=== PATIENT | female | born 1950 | race Caucasian/White ===

== ENCOUNTER → 2016-09-05 | Outpatient (CLI) | payer BC ==
--- NOTE | 2016-09-05 13:10 | XR ---
EXAMINATION TYPE: XR chest 2V DATE OF EXAM: 09/05/2016 11:40 AM COMPARISON: NONE HISTORY: Preop TECHNIQUE: Frontal and lateral views of the chest are obtained. FINDINGS: There is no focal air space opacity, pleural effusion, or pneumothorax seen. The cardiac silhouette size is within normal limits. Biapical pleural thickening is noted. There is a mild spin al curvature. Questionable mild superior endplate depression at the midthoracic spine level may repre sent endplate compression fracture of indeterminate age. IMPRESSION: No acute cardiopulmonary process. Additional findings above.
== END | disposition home or self-care (01) ==
LOC: RADXRMAIN 11:20
PROVIDERS: ATTEND Neurological Surgery
DX: Z01.818 Encounter for other preprocedural examination (principal); D32.9 Benign neoplasm of meninges, unspecified
CPT/HCPCS: 71020; 93005

== ENCOUNTER 2016-10-10 09:36 | Emergency (ER) | payer BC, MEDICARE ==
[2016-10-10 09:47] VITALS: RESP 16
[2016-10-10] MEDS ORDERED: ACETAMINOPHEN IV (For NPO) 1,000 MG in EMPTY BAG 1 BAG IVPB STA (09:47)
[2016-10-10] MEDS ORDERED: SODIUM CHLORIDE 0.9% 1,000 ML IV ONE (09:47)
[2016-10-10] MEDS ORDERED: IBUPROFEN IV 600 MG in SODIUM CHLORIDE 0.9% 250 ML IV STA (09:48)
--- NOTE | 2016-10-10 09:55 | ED ---
General Adult HPI - General Chief complaint: Altered Mental Status Stated complaint: Altered Mental Status Time Seen by Provider: 10/10/16 09:40 Source: EMS, RN notes reviewed Mode of arrival: EMS Limitations: no limitations - History of Present Illness Initial comments: This is a 66-year-old female who presents to the emergency department complaining of altered mental status. family called EMS because she recently had brain surgery for meningioma and today they woke up and the patient was altered. According to family patient has been getting more fatigued since Friday and moving a lot slower but today she was significantly slower and accordingly then she seemed altered. patient is unable to give any history. She is awake and knows where she is but she does not answer questions as to why she is here. Per EMS she just was altered and more lethargic than normal so they wanted her to be evaluated. They saw no nausea or vomiting with the patient has been no difficulty breathing and the patient has not complained of pain anywhere. - Related Data Home Medications Medication Instructions Recorded Confirmed Aspirin 325 mg PO DAILY 01/11/15 10/10/16 Cholecalciferol [Vitamin D3] 2,000 unit PO DAILY 01/11/15 10/10/16 Imipramine HCl [Imipramine HCl] 10 mg PO BID 01/11/15 10/10/16 Loratadine [Claritin] 10 mg PO DAILY 01/11/15 10/10/16 Pramipexole [Mirapex] 0.375 mg PO HS 01/11/15 10/10/16 Terazosin [Hytrin] 1 mg PO DAILY 01/11/15 10/10/16 Ferrous Sulfate [Feosol] 325 mg PO HS 10/10/16 10/10/16 Multivits-Min/Iron/FA/Lutein 1 tab PO DAILY 10/10/16 10/10/16 [Centrum Silver Women Tablet] Pramipexole Di-HCl [Mirapex] 0.25 mg PO HS PRN 10/10/16 10/10/16 Allergies Allergy/AdvReac Type Severity Reaction Status Date / Time No Known Allergies Allergy Verified 10/10/16 10:32 Review of Systems ROS Statement: Those systems with pertinent positive or pertinent negative responses have been documented in the HPI. ROS Other: All systems not noted in ROS Statement are negative. Past Medical History Past Medical History: Blood Disorder, Hypertension Additional Past Medical History / Comment(s): BLADDER INCONTINENCE. MULTIPLE SCLEROSIS (GOOD MOTOR SKILLS). RESTLESS LEGS. ESSENTIAL THROMBOCYTHEMIA. 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 History of Any Multi-Drug Resistant Organisms: None Reported Past Surgical History: Section, Hysterectomy Additional Past Surgical History / Comment(s): LAPAROTOMY Past Anesthesia/Blood Transfusion Reactions: Motion Sickness Past Psychological History: No Psychological Hx Reported Smoking Status: Former smoker Past Alcohol Use History: Occasional Past Drug Use History: None Reported General Exam - General Exam Comments Initial Comments: GENERAL: Patient is well-developed and well-nourished. Patient is nontoxic and well- hydrated and is in mild distress. ENT: Neck is soft and supple. No significant lymphadenopathy is noted. Oropharynx is clear. Moist mucous membranes. Neck has full range of motion without eliciting any pain. EYES: The sclera were anicteric and conjunctiva were pink and moist. Extraocular movements were intact and pupils were equal round and reactive to light. Eyelids were unremarkable. PULMONARY: Unlabored respirations. Good breath sounds bilaterally. No audible rales rhonchi or wheezing was noted. CARDIOVASCULAR: There is a regular rate and rhythm without any murmurs gallops or rubs. ABDOMEN: Soft and nontender with normal bowel sounds. No palpable organomegaly was noted. There is no palpable pulsatile mass. SKIN: Skin is clear with no lesions or rashes and otherwise unremarkable. NEUROLOGIC: Patient is alert and oriented 1. Cranial nerves II through XII are grossly intact. Motor. Speech is definitely low volume. MUSCULOSKELETAL: Normal extremities with adequate strength and full range of motion. No lower extremity swelling or edema. No calf tenderness. LYMPHATICS: No significant lymphadenopathy is noted PSYCHIATRIC: Unable to assess at this time Limitations: no limitations Course Vital Signs 10/10/16 10/10/16 10/10/16 09:37 10:31 10:56 Temperature 100.3 F H 99.9 F H Pulse Rate 104 H 92 92 Respiratory 16 16 16 Rate Blood Pressure 123/72 120/69 125/71 O2 Sat by Pulse 98 100 Oximetry 10/10/16 11:51 Temperature 99.0 F Pulse Rate 87 Respiratory 16 Rate Blood Pressure 124/68 O2 Sat by Pulse 100 Oximetry Medical Decision Making - Medical Decision Making EKG shows normal sinus rhythm at 96 bpm ID interval is 140 QRS is 82 QT interval 358 QTC is 452. Patient's EKG shows no ST segment elevation or depression to the medics are noted. Chest x-ray showed no acute abnormality. Computed tomography scan of the brain showed a acute on chronic right subdural hematoma with an associated 7.7 mm subfalcine shift towards the left there is also an area of crescentic fluid adjacent to the left frontal lobe typical of epidural fluid collection. I spoke with [facility] for transfer and they accepted the transfer of this patient to had previous intracranial surgery at their facility. - Lab Data Result diagrams: 10/10/16 10:05 10/10/16 10:00 Lab Results 10/10/16 10/10/16 10/10/16 Range/Units 09:45 10:00 10:05 WBC (3.8-10.6) k/uL RBC (3.80-5.40) m/uL Hgb (11.4-16.0) gm/dL Hct (34.0-46.0) % MCV (80.0-100.0) fL MCH (25.0-35.0) pg MCHC (31.0-37.0) g/dL RDW (11.5-15.5) % Plt Count (150-450) k/uL Neutrophils % (Manual) % Band Neutrophils % % Lymphocytes % (Manual) % Monocytes % (Manual) % Metamyelocytes % % Myelocytes % % Blast Cells % Neutrophils # (Manual) (1.3-7.7) k/uL Lymphocytes # (Manual) (1.0-4.8) k/uL Monocytes # (Manual) (0-1.0) k/uL Nucleated RBCs (0-0) /100 WBC Manual Slide Review Polychromasia Poikilocytosis Anisocytosis Tear Drop Cells Ovalocytes PT (9.0-12.0) sec INR (<1.1) APTT (22.0-30.0) sec Sodium 143 (137-145) mmol/L Potassium 4.7 (3.5-5.1) mmol/L Chloride 104 (98-107) mmol/L Carbon Dioxide 26 (22-30) mmol/L Anion Gap 13 mmol/L BUN 16 (7-17) mg/dL Creatinine 0.45 L (0.52-1.04) mg/dL Est GFR (MDRD) Af Amer >60 (>60 ml/min/1.73 sqM) Est GFR (MDRD) Non-Af >60 (>60 ml/min/1.73 sqM) Glucose 108 H (74-99) mg/dL POC Glucose (mg/dL) 106 H (75-99) mg/dL POC Glu Poker In ID Margret Wood Plasma Lactic Acid Davide (0.7-2.0) mmol/L Calcium 8.9 (8.4-10.2) mg/dL Total Bilirubin 1.1 (0.2-1.3) mg/dL AST 29 (14-36) U/L ALT 28 (9-52) U/L Alkaline Phosphatase 59 (38-126) U/L Total Creatine Kinase 28 L (30-135) U/L CK-MB (CK-2) <0.2 (0.0-2.4) ng/mL CK-MB (CK-2) Rel Index Troponin I <0.012 (0.000-0.034) ng/mL Total Protein 7.1 (6.3-8.2) g/dL Albumin 4.3 (3.5-5.0) g/dL Urine Color Urine Appearance (Clear) Urine pH (5.0-8.0) Ur Specific [place] (1.001-1.035) Urine Protein (Negative) Urine Glucose (UA) (Negative) Urine Ketones (Negative) Urine Blood (Negative) Urine Nitrate (Negative) Urine Bilirubin (Negative) Urine Urobilinogen (<2.0) mg/dL Ur Leukocyte Esterase (Negative) Urine Opiates Screen (NotDetected) Ur Oxycodone Screen (NotDetected) Urine Methadone Screen (NotDetected) Ur Propoxyphene Screen (NotDetected) Ur Barbiturates Screen (NotDetected) U Tricyclic Antidepress (NotDetected) Ur Phencyclidine Scrn (NotDetected) Ur Amphetamines Screen (NotDetected) U Methamphetamines Scrn (NotDetected) U Benzodiazepines Scrn (NotDetected) Urine Cocaine Screen (NotDetected) U Marijuana (THC) Screen (NotDetected) 10/10/16 10/10/16 10/10/16 Range/Units 10:05 10:05 10:05 WBC 7.4 (3.8-10.6) k/uL RBC 3.00 L (3.80-5.40) m/uL Hgb 8.8 L (11.4-16.0) gm/dL Hct 27.0 L (34.0-46.0) % MCV 90.3 (80.0-100.0) fL MCH 29.3 (25.0-35.0) pg MCHC 32.5 (31.0-37.0) g/dL RDW 18.5 H (11.5-15.5) % Plt Count 110 L (150-450) k/uL Neutrophils % (Manual) 59.0 % Band Neutrophils % 5.0 % Lymphocytes % (Manual) 20.0 % Monocytes % (Manual) 7.0 % Metamyelocytes % 3.5 % Myelocytes % 3.0 % Blast Cells % 2.5 Neutrophils # (Manual) 4.7 (1.3-7.7) k/uL Lymphocytes # (Manual) 1.5 (1.0-4.8) k/uL Monocytes # (Manual) 0.5 (0-1.0) k/uL Nucleated RBCs 0 (0-0) /100 WBC Manual Slide Review Performed Polychromasia Present Poikilocytosis Slight Anisocytosis Slight Tear Drop Cells Present Ovalocytes Present PT 11.0 (9.0-12.0) sec INR 1.1 (<1.1) APTT 25.2 (22.0-30.0) sec Sodium (137-145) mmol/L Potassium (3.5-5.1) mmol/L Chloride (98-107) mmol/L Carbon Dioxide (22-30) mmol/L Anion Gap mmol/L BUN (7-17) mg/dL Creatinine (0.52-1.04) mg/dL Est GFR (MDRD) Af Amer (>60 ml/min/1.73 sqM) Est GFR (MDRD) Non-Af (>60 ml/min/1.73 sqM) Glucose (74-99) mg/dL POC Glucose (mg/dL) (75-99) mg/dL POC Glu Poker In ID Plasma Lactic Acid Davide (0.7-2.0) mmol/L Calcium (8.4-10.2) mg/dL Total Bilirubin (0.2-1.3) mg/dL AST (14-36) U/L ALT (9-52) U/L Alkaline Phosphatase (38-126) U/L Total Creatine Kinase (30-135) U/L CK-MB (CK-2) (0.0-2.4) ng/mL CK-MB (CK-2) Rel Index Troponin I (0.000-0.034) ng/mL Total Protein (6.3-8.2) g/dL Albumin (3.5-5.0) g/dL Urine Color Yellow Urine Appearance Clear (Clear) Urine pH 6.5 (5.0-8.0) Ur Specific [place] 1.021 (1.001-1.035) Urine Protein Trace H (Negative) Urine Glucose (UA) Negative (Negative) Urine Ketones 1+ H (Negative) Urine Blood Negative (Negative) Urine Nitrate Negative (Negative) Urine Bilirubin Negative (Negative) Urine Urobilinogen 3.0 (<2.0) mg/dL Ur Leukocyte Esterase Negative (Negative) Urine Opiates Screen Not Detected (NotDetected) Ur Oxycodone Screen Not Detected (NotDetected) Urine Methadone Screen Not Detected (NotDetected) Ur Propoxyphene Screen Not Detected (NotDetected) Ur Barbiturates Screen Not Detected (NotDetected) U Tricyclic Antidepress Not Detected (NotDetected) Ur Phencyclidine Scrn Not Detected (NotDetected) Ur Amphetamines Screen Not Detected (NotDetected) U Methamphetamines Scrn Not Detected (NotDetected) U Benzodiazepines Scrn Not Detected (NotDetected) Urine Cocaine Screen Not Detected (NotDetected) U Marijuana (THC) Screen Not Detected (NotDetected) 10/10/16 Range/Units 10:05 WBC (3.8-10.6) k/uL RBC (3.80-5.40) m/uL Hgb (11.4-16.0) gm/dL Hct (34.0-46.0) % MCV (80.0-100.0) fL MCH (25.0-35.0) pg MCHC (31.0-37.0) g/dL RDW (11.5-15.5) % Plt Count (150-450) k/uL Neutrophils % (Manual) % Band Neutrophils % % Lymphocytes % (Manual) % Monocytes % (Manual) % Metamyelocytes % % Myelocytes % % Blast Cells % Neutrophils # (Manual) (1.3-7.7) k/uL Lymphocytes # (Manual) (1.0-4.8) k/uL Monocytes # (Manual) (0-1.0) k/uL Nucleated RBCs (0-0) /100 WBC Manual Slide Review Polychromasia Poikilocytosis Anisocytosis Tear Drop Cells Ovalocytes PT (9.0-12.0) sec INR (<1.1) APTT (22.0-30.0) sec Sodium (137-145) mmol/L Potassium (3.5-5.1) mmol/L Chloride (98-107) mmol/L Carbon Dioxide (22-30) mmol/L Anion Gap mmol/L BUN (7-17) mg/dL Creatinine (0.52-1.04) mg/dL Est GFR (MDRD) Af Amer (>60 ml/min/1.73 sqM) Est GFR (MDRD) Non-Af (>60 ml/min/1.73 sqM) Glucose (74-99) mg/dL POC Glucose (mg/dL) (75-99) mg/dL POC Glu Poker In ID Plasma Lactic Acid Davide 1.4 (0.7-2.0) mmol/L Calcium (8.4-10.2) mg/dL Total Bilirubin (0.2-1.3) mg/dL AST (14-36) U/L ALT (9-52) U/L Alkaline Phosphatase (38-126) U/L Total Creatine Kinase (30-135) U/L CK-MB (CK-2) (0.0-2.4) ng/mL CK-MB (CK-2) Rel Index Troponin I (0.000-0.034) ng/mL Total Protein (6.3-8.2) g/dL Albumin (3.5-5.0) g/dL Urine Color Urine Appearance (Clear) Urine pH (5.0-8.0) Ur Specific [place] (1.001-1.035) Urine Protein (Negative) Urine Glucose (UA) (Negative) Urine Ketones (Negative) Urine Blood (Negative) Urine Nitrate (Negative) Urine Bilirubin (Negative) Urine Urobilinogen (<2.0) mg/dL Ur Leukocyte Esterase (Negative) Urine Opiates Screen (NotDetected) Ur Oxycodone Screen (NotDetected) Urine Methadone Screen (NotDetected) Ur Propoxyphene Screen (NotDetected) Ur Barbiturates Screen (NotDetected) U Tricyclic Antidepress (NotDetected) Ur Phencyclidine Scrn (NotDetected) Ur Amphetamines Screen (NotDetected) U Methamphetamines Scrn (NotDetected) U Benzodiazepines Scrn (NotDetected) Urine Cocaine Screen (NotDetected) U Marijuana (THC) Screen (NotDetected) Critical Care Time Critical Care Time: Yes Total Critical Care Time: 35 Disposition Clinical Impression: Subdural hematoma Disposition: OTHER INSTITUTION NOT DEFINED Time of Disposition: 12:20 - Out of Hospital Transfer - Req. Specs Out of Hospital Transfer - Requested Specifics: Other Emergency Center ( [facility])
[2016-10-10 10:08] LABS: Glucose,Whole Blood 106 mg/dL (75-99)
[2016-10-10 10:36] LABS: Appearance,Urine Clear (Clear); Bilirubin,Urine Negative (Negative); Glucose,Urine (UA) Negative (Negative); Ketones,Urine 1+ (Negative); Leukocyte Esterase,Urine Negative (Negative); Nitrite,Urine Negative (Negative); PH, Urine 6.5 (5.0-8.0); Protein,Urine Trace (Negative); Specific Gravity,Urine 1.021 (1.001-1.035); UA Billing (MACRO vs. MICRO) CHEM
[2016-10-10 10:38] LABS: ALT 28 U/L (9-52); AST 29 U/L (14-36); Alkaline Phosphatase 59 U/L (38-126); Anion Gap 13 mmol/L; Blood Urea Nitrogen 16 mg/dL (7-17); Calcium 8.9 mg/dL (8.4-10.2); Carbon Dioxide 26 mmol/L (22-30); Chloride 104 mmol/L (98-107); Glucose 108 mg/dL (74-99); Non-African American GFR(MDRD) >60 (>60 ml/min/1.73 sqM); Sodium 143 mmol/L (137-145); Total Bilirubin 1.1 mg/dL (0.2-1.3); Total Protein 7.1 g/dL (6.3-8.2)
[2016-10-10 10:44] LABS: Potassium 4.7 mmol/L (3.5-5.1)
[2016-10-10 10:45] LABS: INR 1.1 (<1.1); Partial Thromboplastin Time 25.2 sec (22.0-30.0)
[2016-10-10 10:55] LABS: Anisocytosis Slight; Aty Lym Flag Slight; CH 29.9; CHCM 33.4; HDW 3.65; HGB 8.8 gm/dL (11.4-16.0); Immature Gran Flag Moderate; MCH 29.3 pg (25.0-35.0); MCHC 32.5 g/dL (31.0-37.0); MCV 90.3 fL (80.0-100.0); Mean Platelet Volume 11.2; Poikilocytosis Slight; RDW 18.5 % (11.5-15.5); WBC 7.4 k/uL (3.8-10.6); WBC (Perox) 7.15
[2016-10-10 11:02] LABS: Add Differential Manual Differential
[2016-10-10 11:04] LABS: Creatine Kinase 28 U/L (30-135)
[2016-10-10 11:17] LABS: Creatine Kinase MB <0.2 ng/mL (0.0-2.4); Troponin I <0.012 ng/mL (0.000-0.034)
[2016-10-10 11:35] LABS: Blast Cells 2.5; Manual Review Performed; Metamyelocytes % 3.5 %; Nucleated Red Blood Cells 0 /100 WBC (0-0); Total Cells Counted 200
[2016-10-10 11:36] LABS: Polychromasia Present; Tear Drop Cells Present
--- NOTE | 2016-10-10 11:39 | XR ---
EXAMINATION TYPE: XR chest 2V DATE OF EXAM: 10/10/2016 11:31 AM COMPARISON: 09/05/2016 TECHNIQUE: PA and lateral views submitted. HISTORY: Patient found unresponsive FINDINGS: The lungs are clear and there is no pneumothorax, pleural effusion, or focal pneumonia. Right apica l pleural-based thickening seen. No overt failure. IMPRESSION: 1. No acute process.
--- NOTE | 2016-10-10 11:43 | CT ---
EXAMINATION TYPE: CT brain wo con DATE OF EXAM: 10/10/2016 11:31 AM COMPARISON: NONE HISTORY: Altered mental changes CT DLP: 1012.7 mGycm Automated exposure control for dose reduction was used. FINDINGS: There has been a left frontal craniotomy. There are bilateral subdural fluid collections. These appear to be subdural hygromas. Maximal thickne ss on the right is 1.4 cm. Maximal thickness on the left is in the left frontal region. This measures 1.3 cm. The left collection is somewhat crescentic. This makes an epidural fluid collection more pro bable. There is some high attenuation within the right-sided collection suggesting this may be acute on chronic. There is associated mass effect with effacement of the right lateral ventricle. There is approximately 7.7 mm of subfalcine shift towards the left. There is diffuse periventricular white mat ter lucency which may be due to chronic ischemic change or transependymal absorption of CSF. Visualized portions of the paranasal sinuses and mastoids are clear. IMPRESSION: ACUTE ON CHRONIC RIGHT SUBDURAL HEMATOMA. THIS IS ASSOCIATED WITH 7.7 MM SUBFALCINE SHIFT TOWARDS THE LEFT. 2. CRESCENTIC FLUID COLLECTION ADJACENT TO THE LEFT FRONTAL LOBE. THE CONCENTRIC NATURE OF THIS MAKES THE PRESENCE OF AN EPIDURAL FLUID COLLECTION POSSIBLE. 3. POSTSURGICAL CHANGE.
[2016-10-10 11:46] LABS: Ovalocytes Present
[2016-10-10 11:52] VITALS: TEMP 99
[2016-10-10 12:23] VITALS: BP 122/66; PULSE 89
== END 2016-10-10 12:24 | disposition other institution (70) ==
LOC: EC 09:36
DX: I62.00 Nontraumatic subdural hemorrhage, unspecified (principal); I10 Essential (primary) hypertension; D47.3 Essential (hemorrhagic) thrombocythemia; G25.81 Restless legs syndrome; G35 Multiple sclerosis; Z87.891 Personal history of nicotine dependence; Z79.899 Other long term (current) drug therapy; Z79.82 Long term (current) use of aspirin; Z98.890 Other specified postprocedural states
CPT/HCPCS: 36415; 93005; 80053; 82550; 82553; 83605; 84484; 85025; 85610; 85730; 81003; 87040; 80306; 71020; 70450; 99285; 96374; 96375; 96361; J0131; J1741

== ENCOUNTER → 2017-04-17 | Outpatient (CLI) | payer BC | END | disposition home or self-care (01) | LOC: LABWHC1 16:02 | PROVIDERS: ATTEND Internal Medicine Hematology & Oncology | DX: Z53.9 Procedure and treatment not carried out, unspecified reason (principal) ==

== ENCOUNTER → 2017-07-14 | Outpatient (CLI) | payer BC ==
[2017-07-14 09:28] LABS: Anisocytosis Moderate; CH 28.9; CHCM 30.9; HCT 31.4 % (34.0-46.0); HDW 3.97; HGB 9.9 gm/dL (11.4-16.0); Hypochromasia Marked; Immature Gran Flag Marked; Large Platelets Flag Moderate; MCH 29.9 pg (25.0-35.0); MCHC 31.5 g/dL (31.0-37.0); Macrocytosis Slight; Mean Platelet Volume 12.6; Poikilocytosis Slight; RBC 3.31 m/uL (3.80-5.40); RDW 20.7 % (11.5-15.5); WBC (Perox) 14.75
[2017-07-14 09:54] LABS: Add Differential Manual Differential
[2017-07-14 10:59] LABS: Band Neutrophils % 14 %; Manual Review Performed; Metamyelocytes % 5 %; Myelocytes % 8 %; Nucleated Red Blood Cells 5 /100 WBC (0-0); Polychromasia Present; Promyelocytes % 2 %; Total Cells Counted 200
[2017-07-14 11:03] LABS: Tear Drop Cells Present
== END | disposition home or self-care (01) ==
LOC: LABWHC1 08:37
DX: D47.1 Chronic myeloproliferative disease (principal)
CPT/HCPCS: 36415; 85025

== ENCOUNTER → 2017-11-24 | Outpatient (CLI) | payer BC ==
--- NOTE | 2017-11-24 21:45 | MR ---
EXAMINATION TYPE: MR brain wo/w con DATE OF EXAM: 11/24/2017 COMPARISON: NONE HISTORY: Neoplasm, Gadavist 7.5ml CONTRAST: Performed utilizing 7.5 mL intravenous Gadavist gadolinium contrast. TECHNIQUE: Multiplanar, multiecho imaging on a 3.0 Berenice magnet is performed through the brain. Stud y is performed within 24 hours of arrival to the hospital. The craniovertebral junction is normal. The pituitary is normal. Corpus callosum is thinned. Diffusion-weighted imaging is performed. No abnormal hyperintensity is present to suggest an acute i ntracranial infarct or acute ischemic change. There is an isodense mass extending from the left aspect of the suprasellar cistern towards the middl e cranial fossa. This has mass effect on the adjacent temporal lobe. There appears to be displacement of the left internal carotid artery and left middle cerebral artery. This strongly enhances. This ap pears to displace the pituitary in the sagittal plane is difficult to separate in the axial plane and may be an extension.. This appears to measure 4.6 x 2.1 by 3.1 cm. Utilizing similar measurement lev els, this previously measured 4.3 x 2.6 x 3.8 cm. This may be slightly smaller than the craniocaudal dimension. There is some mild edema within the medial anterior aspect of the left temporal lobe from the herb summer. This area is isointense with the adjacent brain. Findings can be compatible with a meningioma. There is some periventricular white matter hyperintensity, likely on the basis of chronic white matte r ischemic changes. These areas appear stable from comparison. Ventricles and sulci are slightly prominent for the patient age. No new area of enhancement is evident. IMPRESSIONS: 1. Suprasellar mass with some mass effect on the adjacent left temporal lobe appears stable in size a nd enhancement from the comparison study dated May 14, 2017.
== END | disposition home or self-care (01) ==
LOC: RADMRIMAIN 20:02
PROVIDERS: ATTEND Neurological Surgery
DX: R93.0 Abnormal findings on diagnostic imaging of skull and head, not elsewhere classified (principal)
CPT/HCPCS: 70553; A9581

== ENCOUNTER 2017-12-29 17:22 | Emergency (ER) | payer BC ==
[2017-12-29] MEDS ORDERED: KETOROLAC 30 MG/ML 1 ML VIAL IVP STA (18:47)
[2017-12-29] MEDS ORDERED: METOCLOPRAMIDE 5 MG/ML 2 ML VIAL IVP STA (18:47)
[2017-12-29] MEDS ORDERED: diphenhydrAMINE 50 MG/ML 1 ML VIAL IVP STA (18:47)
[2017-12-29] MEDS ORDERED: SODIUM CHLORIDE 0.9% 1,000 ML IV STA ×2 (18:47→19:57)
[2017-12-29] MEDS ORDERED: MORPHINE SULFATE 4 MG/ML SYRINGE IV STA (18:47)
--- NOTE | 2017-12-29 19:10 | ED ---
General Adult HPI - General Chief complaint: Headache Stated complaint: Headache Time Seen by Provider: 12/29/17 18:47 Source: patient, RN notes reviewed, old records reviewed Mode of arrival: ambulatory Limitations: no limitations - History of Present Illness Initial comments: This is a 67-year-old female the ER for evaluation. Brain surgery. Multiple surgeries. Patient states she does occasionally get headaches are severe just like this. Denies any new trauma. No fevers, mild nausea no vomiting. Patient 's brain surgeries were done or [facility], brain surgery significant and meningioma. Patient has also severe myelofibrosis, history of low platelets and platelets have been running low less than 20. Patient states headache 3-4 days worsening. No modifying factors or symptoms to help. - Related Data Home Medications Medication Instructions Recorded Confirmed Loratadine [Claritin] 10 mg PO DAILY 01/11/15 12/29/17 Multivit-Min/Iron/Folic/Lutein 1 tab PO DAILY 10/10/16 12/29/17 [Centrum Silver Women Tablet] Cholecalciferol [Vitamin D3] 2,000 unit PO DAILY 04/18/17 12/29/17 Pacritinib 1 tab PO BID 12/29/17 12/29/17 Polyethylene Glycol 3350 [Miralax] 17 gm PO DAILY PRN 12/29/17 12/29/17 Allergies Allergy/AdvReac Type Severity Reaction Status Date / Time No Known Allergies Allergy Verified 12/29/17 19:15 Review of Systems ROS Statement: Those systems with pertinent positive or pertinent negative responses have been documented in the HPI. ROS Other: All systems not noted in ROS Statement are negative. Past Medical History Past Medical History: Blood Disorder, Neurologic Disorder Additional Past Medical History / Comment(s): BLADDER INCONTINENCE. MULTIPLE SCLEROSIS (GOOD MOTOR SKILLS). RESTLESS LEGS. ESSENTIAL THROMBOCYTHEMIA. 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 raynaud's History of Any Multi-Drug Resistant Organisms: None Reported Past Surgical History: Section, Hysterectomy Additional Past Surgical History / Comment(s): LAPAROTOMY, memingioma removed Past Anesthesia/Blood Transfusion Reactions: Motion Sickness Past Psychological History: No Psychological Hx Reported Smoking Status: Former smoker Past Alcohol Use History: Occasional Past Drug Use History: None Reported General Exam Limitations: no limitations General appearance: alert, in no apparent distress Head exam: Present: atraumatic, normocephalic, normal inspection Eye exam: Present: normal appearance, PERRL, EOMI. Absent: scleral icterus, conjunctival injection, periorbital swelling ENT exam: Present: normal exam, mucous membranes moist Neck exam: Present: normal inspection. Absent: tenderness, meningismus, lymphadenopathy Respiratory exam: Present: normal lung sounds bilaterally. Absent: respiratory distress, wheezes, rales, rhonchi, stridor Cardiovascular Exam: Present: regular rate, normal rhythm, normal heart sounds. Absent: systolic murmur, diastolic murmur, rubs, gallop, clicks GI/Abdominal exam: Present: soft, normal bowel sounds. Absent: distended, tenderness, guarding, rebound, rigid Extremities exam: Present: normal inspection, full ROM, normal capillary refill. Absent: tenderness, pedal edema, joint swelling, calf tenderness Back exam: Present: normal inspection Neurological exam: Present: alert, oriented X3, CN II-XII intact Psychiatric exam: Present: normal affect, normal mood Skin exam: Present: warm, dry, intact, normal color. Absent: rash Course Vital Signs 12/29/17 17:23 Temperature 98.3 F Pulse Rate 79 Respiratory 18 Rate Blood Pressure 134/64 O2 Sat by Pulse 99 Oximetry - Reevaluation(s) Reevaluation #1: 12/29/17 19:59 Patient has better improvement in pain control Reevaluation #2: 12/29/17 19:59 Patient will be given platelets Medical Decision Making - Medical Decision Making 67 female the ER positive had a positive subdural hemorrhage positive low platelets. Patient transfused platelets, will transfer [facility] for her neuro surgeon - Radiology Data Radiology results: report reviewed (CT brain positive for subdural hemorrhage), image reviewed Disposition Clinical Impression: Subdural hemorrhage, Headache, Thrombocytopenia Disposition: OTHER INSTITUTION NOT DEFINED Condition: Serious Is patient prescribed a controlled substance at d/c from ED?: No Referrals: Jonathan Hernandez MD [Primary Care Provider] - 1-2 days - Out of Hospital Transfer - Req. Specs Out of Hospital Transfer - Requested Specifics: Other Emergency Center ( [facility])
--- NOTE | 2017-12-29 19:44 | CT ---
EXAMINATION TYPE: CT brain wo con DATE OF EXAM: 12/29/2017 COMPARISON: 10/10/2016 HISTORY: CAMACHO x4 days. CT DLP: 1012.7 mGycm Automated exposure control for dose reduction was used. FINDINGS: There is old left side craniotomy defect. There is no mass effect nor midline shift. There is right p arietal craniotomy defect. There is a 2.5 x 0.8 cm area of higher attenuation at the right posterior parietal convexity consistent with an acute hemorrhage. This is probably subdural. There is no eviden ce of cortical infarct. There is a 2.5 x 1.5 cm area of increased density at the anterior clinoid pro cess on the left side consistent with meningioma. This is also demonstrated on the old MR scan of 04/26. IMPRESSION: THERE IS A SMALL ACUTE SUBDURAL HEMORRHAGE IN THE RIGHT POSTERIOR PARIETAL LOBE. THERE IS CLEARING OF THE SUBDURAL HYGROMA COMPARED TO OLD CT SCAN OF 10/10/2016. THERE IS A SPHENOID WING MENINGIOMA ON TH E LEFT SIDE THAT IS SIMILAR TO OLD MR SCAN.
[2017-12-29] MEDS ORDERED: DEXAMETHASONE SOD PHOSPHATE 10 MG/ML 1 ML VIAL IV STA (20:06)
[2017-12-29 20:16] LABS: Anisocytosis Slight; HCT 21.9 % (34.0-46.0); HGB 7.6 gm/dL (11.4-16.0); Hyperchromasia Slight; MCH 28.5 pg (25.0-35.0); MCHC 34.6 g/dL (31.0-37.0); MCV 82.6 fL (80.0-100.0); Mean Platelet Volume 7.1; Poikilocytosis Moderate; RBC 2.65 m/uL (3.80-5.40); RDW 18.3 % (11.5-15.5)
[2017-12-29 20:23] LABS: Platelet Count 19 k/uL (150-450)
[2017-12-29 20:30] LABS: Creatine Kinase 22 U/L (30-135)
[2017-12-29 20:31] LABS: Partial Thromboplastin Time 22.8 sec (22.0-30.0); Prothrombin Time 10.2 sec (9.0-12.0)
[2017-12-29 20:33] LABS: ALT 41 U/L (9-52); AST 45 U/L (14-36); Albumin 3.7 g/dL (3.5-5.0); Alkaline Phosphatase 129 U/L (38-126); Anion Gap 12 mmol/L; Blood Urea Nitrogen 11 mg/dL (7-17); Calcium 8.4 mg/dL (8.4-10.2); Carbon Dioxide 25 mmol/L (22-30); Chloride 102 mmol/L (98-107); Glucose 131 mg/dL (74-99); Magnesium 1.9 mg/dL (1.6-2.3); Potassium 3.5 mmol/L (3.5-5.1); Sodium 139 mmol/L (137-145); Total Bilirubin 1.1 mg/dL (0.2-1.3); Total Protein 6.1 g/dL (6.3-8.2)
[2017-12-29 20:43] LABS: Creatine Kinase MB <0.2 ng/mL (0.0-2.4); Troponin I <0.012 ng/mL (0.000-0.034)
[2017-12-29 20:52] VITALS: BP 108/58; PULSE 92; RESP 16; TEMP 98.1
[2017-12-29 21:16] LABS: Band Neutrophils % 17 %; Blast Cells # (M) 0.43 k/uL (0); Lymphocytes # (M) 1.45 k/uL (1.0-4.8); Metamyelocytes # (M) 0.34 k/uL (0); Metamyelocytes % 4 %; Monocytes # (M) 1.02 k/uL (0-1.0); Myelocytes # (M) 1.36 k/uL (0); Myelocytes % 16 %; Neutrophils % (M) 29 %; Nucleated Red Blood Cells 11 /100 WBC (0-0); Promyelocytes # (M) 0.09 k/uL (0); Promyelocytes % 1 %; Total Cells Counted 200; WBC 8.5 k/uL (3.8-10.6)
[2017-12-29 21:17] LABS: Ovalocytes Present; Polychromasia Present
== END 2017-12-29 21:03 | disposition short-term general hospital (02) ==
LOC: EC 17:22
DX: I62.00 Nontraumatic subdural hemorrhage, unspecified (principal); D69.6 Thrombocytopenia, unspecified; D75.81 Myelofibrosis; Z87.891 Personal history of nicotine dependence; Z79.899 Other long term (current) drug therapy; Z86.011 Personal history of benign neoplasm of the brain; Z98.890 Other specified postprocedural states; Z53.20 Procedure and treatment not carried out because of patient's decision for unspecified reasons
CPT/HCPCS: 36415; 80053; 82550; 82553; 83735; 84100; 84484; 85025; 85610; 85730; 70450; 99285; 96374; 96375 ×3; 96361; J1200; J1100; J2765; J1885

== ENCOUNTER → 2018-02-03 | Outpatient (CLI) | payer BC ==
--- NOTE | 2018-02-03 14:17 | CT ---
EXAMINATION TYPE: CT brain wo con DATE OF EXAM: 02/03/2018 COMPARISON: Prior CT 12/29/2017 HISTORY: Headaches CT DLP: 1141 mGycm Automated exposure control for dose reduction was used. Helical imaging through the brain. FINDINGS: Postcraniotomy changes are present bilaterally as on prior exam. There are areas of white matter demy elination as on previous exam. Increased attenuation at the posterior parietal location the subcortic al location on the right is again noted suggestive of small subdural hematoma measuring approximately 9 mm in greatest thickness similar to prior exam with some local mass effect. Smaller focus of hemor rhage noted at the level on the right immediately posterior to the craniotomy similar to prior. Encep halomalacia noted in the left temporal lobe similar to prior. Again noted is meningioma the sphenoid wing on the left. The increased attenuation along the petrous bone to the left of midline seen on bebeto or is no longer evident, there may be some resolution of local hemorrhage. IMPRESSION: FINDINGS COMPATIBLE WITH SUBDURAL HEMORRHAGES, MENINGIOMAS WHICH ARE THOUGHT TO BE STABLE, POSTOP JAVIER NGES DESCRIBED. MRI WOULD BE OF INCREASED SENSITIVITY AND SPECIFICITY.
== END ==
LOC: RADPROMAIN 13:12
PROVIDERS: ATTEND Internal Medicine
DX: D32.0 Benign neoplasm of cerebral meninges (principal)
CPT/HCPCS: 70450

== ENCOUNTER → 2018-06-15 | Outpatient (CLI) | payer BC ==
[~2018-06-15] MED LIST: SODIUM CHLORIDE 0.9% 500 ML 500 ML in EMPTY BAG 1 BAG IV PRN
[2018-06-15 10:50] VITALS: BP 111/72; PULSE 98; RESP 18; TEMP 97.3
[2018-06-15 11:28] LABS: Potassium 4.4 mmol/L (3.5-5.1)
[2018-06-15 11:31] LABS: ALT 26 U/L (9-52); AST 33 U/L (14-36); Albumin 4.1 g/dL (3.5-5.0); Alkaline Phosphatase 76 U/L (38-126); Anion Gap 11 mmol/L; Blood Urea Nitrogen 11 mg/dL (7-17); Calcium 8.9 mg/dL (8.4-10.2); Carbon Dioxide 28 mmol/L (22-30); Chloride 103 mmol/L (98-107); Glucose 85 mg/dL (74-99); Sodium 142 mmol/L (137-145); Total Bilirubin 1.2 mg/dL (0.2-1.3); Total Protein 6.8 g/dL (6.3-8.2)
[2018-06-15 11:53] LABS: Anisocytosis Slight; HCT 27.9 % (34.0-46.0); HGB 9.4 gm/dL (11.4-16.0); Hypochromasia Slight; MCH 29.1 pg (25.0-35.0); MCHC 33.8 g/dL (31.0-37.0); MCV 86.1 fL (80.0-100.0); Mean Platelet Volume 12.9; Platelet Count 32 k/uL (150-450); Poikilocytosis Marked; RBC 3.24 m/uL (3.80-5.40); RDW 18.4 % (11.5-15.5)
[2018-06-15 12:17] LABS: Band Neutrophils % 8 %; Metamyelocytes % 6 %; Myelocytes % 10 %; Neutrophils % (M) 38 %; Promyelocytes % 2 %
[2018-06-15 12:19] LABS: Basophils # (M) 0.08 k/uL (0-0.2); Blast Cells # (M) 0.62 k/uL (0); Lymphocytes # (M) 1.54 k/uL (1.0-4.8); Metamyelocytes # (M) 0.46 k/uL (0); Monocytes # (M) 0.85 k/uL (0-1.0); Myelocytes # (M) 0.77 k/uL (0); Nucleated Red Blood Cells 15 /100 WBC (0-0); Promyelocytes # (M) 0.15 k/uL (0); Total Cells Counted 200; WBC 7.7 k/uL (3.8-10.6)
[2018-06-15 12:20] LABS: Large Platelets Present; Polychromasia Present
== END | disposition home or self-care (01) ==
LOC: PROCWHC3 10:31
PROVIDERS: ATTEND Physician Assistant
DX: C92.01 Acute myeloblastic leukemia, in remission (principal)
CPT/HCPCS: 80053; 85025; 36591; J1642

== ENCOUNTER → 2018-06-22 | Outpatient (CLI) | payer BC ==
[2018-06-22 15:54] VITALS: BP 101/62; PULSE 101; RESP 16; TEMP 98.1
--- NOTE | 2018-06-22 16:09 | XR ---
EXAMINATION TYPE: XR chest 1V DATE OF EXAM: 06/22/2018 COMPARISON: 10/10/2016 HISTORY: 67 year-old female right subclavian nodule TECHNIQUE: Single frontal view of the chest is obtained. FINDINGS: Right anterior chest wall injection port with catheter tip at the mid SVC. Heart normal size. Mild el ongation of the thoracic aorta. Some streaky areas of atelectasis in the lower lungs. No consolidatio n or pleural effusion. Some focal increased density at the medial right apex could reflect a prominen t right rib end. Nonemergent follow-up contrast enhanced CT chest can't exclude underlying pulmonary nodule. IMPRESSION: 1. Chronic changes. No acute process seen. 2. Focal density medial right apex, possible prominent right rib end. Nonemergent follow-up contrast enhanced CT chest can't exclude underlying pulmonary nodule.
== END | disposition home or self-care (01) ==
LOC: PROCWHC3 15:19
PROVIDERS: ATTEND Surgery Vascular Surgery
DX: Z09 Encounter for follow-up examination after completed treatment for conditions other than malignant neoplasm (principal); J98.4 Other disorders of lung; Z86.79 Personal history of other diseases of the circulatory system
CPT/HCPCS: 71045; 99211

== ENCOUNTER 2018-07-15 09:15 | Inpatient (IN) | payer BC, MEDICARE ==
[2018-07-15] MEDS ORDERED: IBUPROFEN 600 MG TAB PO STA (09:45)
[2018-07-15] MEDS ORDERED: MORPHINE SULFATE 2 MG/ML SYRINGE IVP STA (09:45)
[2018-07-15] MEDS ORDERED: ACETAMINOPHEN TAB 500 MG TAB PO STA (09:45)
[2018-07-15] MEDS: SODIUM CHLORIDE 0.9% 500 ML 500 ML IV SCH ×2 (09:52→11:21)
--- NOTE | 2018-07-15 09:54 | ED ---
General Adult HPI - General Chief complaint: Weakness Stated complaint: weakness Time Seen by Provider: 07/15/18 09:20 Source: patient, RN notes reviewed Mode of arrival: EMS Limitations: no limitations - History of Present Illness Initial comments: This is a 67-year-old female presents emergency Department with a past history of leukemia. Patient comes in today because she is becoming more more weak and very very tired. Patient also complains of a headache. Patient states she gets a headache periodically but today is worse than it has been. Patient describes the pain in the top of her head. Patient denies any numbness or weakness. Patient has any injury or trauma. Patient also states she recently had a port removed about a week ago from her right anterior chest wall and there is much more swollen and has been in the past and is tender to touch. Patient states she's not having any anterior chest pain other than that area where the port was removed. Patient states she has been coughing lately and feels somewhat short of breath. Patient denies any sputum production. Patient denies abdominal pain patient denies nausea vomiting or diarrhea. Patient denies any dysuria hematuria urinary frequency. - Related Data Home Medications Medication Instructions Recorded Confirmed Cefadroxil [Duricef Susp] 500 mg PO BID 07/15/18 07/15/18 Allergies Allergy/AdvReac Type Severity Reaction Status Date / Time No Known Allergies Allergy Verified 06/26/18 08:39 Review of Systems ROS Statement: Those systems with pertinent positive or pertinent negative responses have been documented in the HPI. ROS Other: All systems not noted in ROS Statement are negative. Past Medical History Past Medical History: Blood Disorder, Cancer, Neurologic Disorder Additional Past Medical History / Comment(s): BLADDER INCONTINENCE. MS. BONE MARROW CANCER. RESTLESS LEGS. ESSENTIAL THROMBOCYTHEMIA. 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 raynaud's. MYELOPROLIFERATIVE NEOPLASM. History of Any Multi-Drug Resistant Organisms: None Reported Past Surgical History: Section, Hysterectomy Additional Past Surgical History / Comment(s): LAPAROTOMY, memingioma removed. SUBCLAVIAN PORT INSERTION. Past Anesthesia/Blood Transfusion Reactions: Motion Sickness Past Psychological History: No Psychological Hx Reported Smoking Status: Never smoker - Past Family History Mother Family Medical History: Cancer Additional Family Medical History / Comment(s): BONE CANCER. SMOKER. General Exam - General Exam Comments Initial Comments: GENERAL: Patient is cachectic. Patient also appears to be in mild discomfort. ENT: Neck is soft and supple. No significant lymphadenopathy is noted. Oropharynx is clear. Moist mucous membranes. Neck has full range of motion without eliciting any pain. EYES: The sclera were anicteric and conjunctiva were pink and moist. Extraocular movements were intact and pupils were equal round and reactive to light. Eyelids were unremarkable. PULMONARY: Unlabored respirations. Good breath sounds bilaterally. No audible rales rhonchi or wheezing was noted. CARDIOVASCULAR: There is a regular rate and rhythm without any murmurs gallops or rubs. Right anterior superior aspect of the chest is a ecchymotic area with some nodules and some recent suturing according to the patient this is a site where they removed report. The area is very tender to palpation. It does not appear to be infected ABDOMEN: Soft and nontender with normal bowel sounds. Patient has splenomegaly on exam SKIN: Skin is clear with no lesions or rashes and otherwise unremarkable. NEUROLOGIC: Patient is alert and oriented x3. Cranial nerves II through XII are grossly intact. Motor and sensory are also intact. Normal speech, volume and content. Symmetrical smile. MUSCULOSKELETAL: Normal extremities with adequate strength and full range of motion. No lower extremity swelling or edema. No calf tenderness. PSYCHIATRIC: Normal psychiatric evaluation. Limitations: no limitations Course Vital Signs 07/15/18 07/15/18 07/15/18 09:19 11:11 12:30 Temperature 100.9 F H Pulse Rate 99 95 79 Respiratory 18 18 18 Rate Blood Pressure 105/63 95/59 90/59 O2 Sat by Pulse 96 96 96 Oximetry 07/15/18 07/15/18 07/15/18 13:40 13:50 14:20 Temperature 98.3 F 97.6 F 97.8 F Pulse Rate 78 78 79 Respiratory 17 17 17 Rate Blood Pressure 93/57 100/57 97/62 O2 Sat by Pulse 95 96 95 Oximetry Medical Decision Making - Medical Decision Making EKG shows normal sinus rhythm at 97 bpm [place] interval 236 QRS is 86 Q-T intervals 370 QTC is 469. Patient's EKG shows no ST segment elevation or depression there is some slight T-wave inversion in leads 3 and aVF. Computed tomography scan showed a possible abscess versus hematoma in the right superior anterior wall of the chest. 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 Radiology stated that was seen before but has worsened over time. Patient received a blood transfusion in the emergency department. I started antibiotics in the emergency department. I spoke with Dr. Hobson she accepted the patient. I consult the Dr. Lundberg and Dr. Correa and Dr. Scott. I spoke with Dr. Correa and informed him of the patient's status - Lab Data Result diagrams: 07/15/18 09:34 07/15/18 09:34 Lab Results 07/15/18 07/15/18 07/15/18 Range/Units 09:34 09:34 09:34 WBC 10.0 (3.8-10.6) k/uL RBC 2.27 L (3.80-5.40) m/uL Hgb 6.8 L* (11.4-16.0) gm/dL Hct 19.4 L* (34.0-46.0) % MCV 85.3 (80.0-100.0) fL MCH 29.9 (25.0-35.0) pg MCHC 35.0 (31.0-37.0) g/dL RDW 18.2 H (11.5-15.5) % Plt Count 11 L* (150-450) k/uL Neutrophils % (Manual) 35 % Band Neutrophils % 7 % Lymphocytes % (Manual) 22 % Monocytes % (Manual) 15 % Basophils % (Manual) 1 % Metamyelocytes % 5 % Myelocytes % 10 % Blast Cells % 7 H* % Neutrophils # (Manual) 4.20 (1.3-7.7) k/uL Lymphocytes # (Manual) 2.20 (1.0-4.8) k/uL Monocytes # (Manual) 1.50 H (0-1.0) k/uL Basophils # (Manual) 0.10 (0-0.2) k/uL Metamyelocytes # (Man) 0.50 H (0) k/uL Myelocytes # (Manual) 1.00 H (0) k/uL Blast Cells # (Man) 0.70 H (0) k/uL Nucleated RBCs 17 H (0-0) /100 WBC Manual Slide Review Performed Polychromasia Present Hypochromasia Slight Poikilocytosis Marked Anisocytosis Slight PT (9.0-12.0) sec INR (<1.2) APTT (22.0-30.0) sec Sodium 139 (137-145) mmol/L Potassium 3.9 (3.5-5.1) mmol/L Chloride 106 (98-107) mmol/L Carbon Dioxide 25 (22-30) mmol/L Anion Gap 8 mmol/L BUN 13 (7-17) mg/dL Creatinine 0.44 L (0.52-1.04) mg/dL Est GFR (CKD-EPI)AfAm >90 (>60 ml/min/1.73 sqM) Est GFR (CKD-EPI)NonAf >90 (>60 ml/min/1.73 sqM) Glucose 81 (74-99) mg/dL Plasma Lactic Acid [place] (0.7-2.0) mmol/L Calcium 8.3 L (8.4-10.2) mg/dL Total Bilirubin 1.4 H (0.2-1.3) mg/dL AST 35 (14-36) U/L ALT 30 (9-52) U/L Alkaline Phosphatase 108 (38-126) U/L Total Creatine Kinase <20 L (30-135) U/L CK-MB (CK-2) <0.2 (0.0-2.4) ng/mL CK-MB (CK-2) Rel Index Troponin I <0.012 (0.000-0.034) ng/mL Total Protein 5.7 L (6.3-8.2) g/dL Albumin 3.3 L (3.5-5.0) g/dL Urine Color Urine Appearance (Clear) Urine pH (5.0-8.0) Ur Specific [place] (1.001-1.035) Urine Protein (Negative) Urine Glucose (UA) (Negative) Urine Ketones (Negative) Urine Blood (Negative) Urine Nitrite (Negative) Urine Bilirubin (Negative) Urine Urobilinogen (<2.0) mg/dL Ur Leukocyte Esterase (Negative) Blood Type Blood Type Recheck Antibody Screen Crossmatch Spec Expiration Date 07/15/18 07/15/18 07/15/18 Range/Units 09:34 09:34 09:45 WBC (3.8-10.6) k/uL RBC (3.80-5.40) m/uL Hgb (11.4-16.0) gm/dL Hct (34.0-46.0) % MCV (80.0-100.0) fL MCH (25.0-35.0) pg MCHC (31.0-37.0) g/dL RDW (11.5-15.5) % Plt Count (150-450) k/uL Neutrophils % (Manual) % Band Neutrophils % % Lymphocytes % (Manual) % Monocytes % (Manual) % Basophils % (Manual) % Metamyelocytes % % Myelocytes % % Blast Cells % % Neutrophils # (Manual) (1.3-7.7) k/uL Lymphocytes # (Manual) (1.0-4.8) k/uL Monocytes # (Manual) (0-1.0) k/uL Basophils # (Manual) (0-0.2) k/uL Metamyelocytes # (Man) (0) k/uL Myelocytes # (Manual) (0) k/uL Blast Cells # (Man) (0) k/uL Nucleated RBCs (0-0) /100 WBC Manual Slide Review Polychromasia Hypochromasia Poikilocytosis Anisocytosis PT 10.4 (9.0-12.0) sec INR 1.1 (<1.2) APTT 27.4 (22.0-30.0) sec Sodium (137-145) mmol/L Potassium (3.5-5.1) mmol/L Chloride (98-107) mmol/L Carbon Dioxide (22-30) mmol/L Anion Gap mmol/L BUN (7-17) mg/dL Creatinine (0.52-1.04) mg/dL Est GFR (CKD-EPI)AfAm (>60 ml/min/1.73 sqM) Est GFR (CKD-EPI)NonAf (>60 ml/min/1.73 sqM) Glucose (74-99) mg/dL Plasma Lactic Acid Davide (0.7-2.0) mmol/L Calcium (8.4-10.2) mg/dL Total Bilirubin (0.2-1.3) mg/dL AST (14-36) U/L ALT (9-52) U/L Alkaline Phosphatase (38-126) U/L Total Creatine Kinase (30-135) U/L CK-MB (CK-2) (0.0-2.4) ng/mL CK-MB (CK-2) Rel Index Troponin I (0.000-0.034) ng/mL Total Protein (6.3-8.2) g/dL Albumin (3.5-5.0) g/dL Urine Color Yellow Urine Appearance Clear (Clear) Urine pH 6.0 (5.0-8.0) Ur Specific [place] 1.019 (1.001-1.035) Urine Protein Trace H (Negative) Urine Glucose (UA) Negative (Negative) Urine Ketones Negative (Negative) Urine Blood Negative (Negative) Urine Nitrite Negative (Negative) Urine Bilirubin Negative (Negative) Urine Urobilinogen <2.0 (<2.0) mg/dL Ur Leukocyte Esterase Negative (Negative) Blood Type O Positive Blood Type Recheck No Antibody Screen NEGATIVE Crossmatch See Detail Spec Expiration Date 07/18/2018233307/15/18 Range/Units 10:53 WBC (3.8-10.6) k/uL RBC (3.80-5.40) m/uL Hgb (11.4-16.0) gm/dL Hct (34.0-46.0) % MCV (80.0-100.0) fL MCH (25.0-35.0) pg MCHC (31.0-37.0) g/dL RDW (11.5-15.5) % Plt Count (150-450) k/uL Neutrophils % (Manual) % Band Neutrophils % % Lymphocytes % (Manual) % Monocytes % (Manual) % Basophils % (Manual) % Metamyelocytes % % Myelocytes % % Blast Cells % % Neutrophils # (Manual) (1.3-7.7) k/uL Lymphocytes # (Manual) (1.0-4.8) k/uL Monocytes # (Manual) (0-1.0) k/uL Basophils # (Manual) (0-0.2) k/uL Metamyelocytes # (Man) (0) k/uL Myelocytes # (Manual) (0) k/uL Blast Cells # (Man) (0) k/uL Nucleated RBCs (0-0) /100 WBC Manual Slide Review Polychromasia Hypochromasia Poikilocytosis Anisocytosis PT (9.0-12.0) sec INR (<1.2) APTT (22.0-30.0) sec Sodium (137-145) mmol/L Potassium (3.5-5.1) mmol/L Chloride (98-107) mmol/L Carbon Dioxide (22-30) mmol/L Anion Gap mmol/L BUN (7-17) mg/dL Creatinine (0.52-1.04) mg/dL Est GFR (CKD-EPI)AfAm (>60 ml/min/1.73 sqM) Est GFR (CKD-EPI)NonAf (>60 ml/min/1.73 sqM) Glucose (74-99) mg/dL Plasma Lactic Acid [place] 0.7 (0.7-2.0) mmol/L Calcium (8.4-10.2) mg/dL Total Bilirubin (0.2-1.3) mg/dL AST (14-36) U/L ALT (9-52) U/L Alkaline Phosphatase (38-126) U/L Total Creatine Kinase (30-135) U/L CK-MB (CK-2) (0.0-2.4) ng/mL CK-MB (CK-2) Rel Index Troponin I (0.000-0.034) ng/mL Total Protein (6.3-8.2) g/dL Albumin (3.5-5.0) g/dL Urine Color Urine Appearance (Clear) Urine pH (5.0-8.0) Ur Specific [place] (1.001-1.035) Urine Protein (Negative) Urine Glucose (UA) (Negative) Urine Ketones (Negative) Urine Blood (Negative) Urine Nitrite (Negative) Urine Bilirubin (Negative) Urine Urobilinogen (<2.0) mg/dL Ur Leukocyte Esterase (Negative) Blood Type Blood Type Recheck Antibody Screen Crossmatch Spec Expiration Date Critical Care Time Critical Care Time: Yes Total Critical Care Time: 35 Disposition Clinical Impression: Chest wall abscess, Subdural fluid collection, Fever, unknown origin, Generalized weakness, Anemia Disposition: ADMITTED IP TO THIS [facility] Time of Disposition: 14:32
[2018-07-15] MEDS ORDERED: RX INFO: IV CONTRAST WAS GIVEN 1 EACH MISC MISCELLANE PRN (09:58)
--- NOTE | 2018-07-15 10:21 | XR ---
EXAMINATION TYPE: XR chest 2V DATE OF EXAM: 07/15/2018 COMPARISON: Prior chest 06/22/2018 HISTORY: Fever, abnormal chest x-ray TECHNIQUE: Frontal and lateral views of the chest are obtained. FINDINGS: There is been interval removal of the patient's Port-A-Cath. Patient is rotated. There are overlying cardiac leads. Cardiomediastinal silhouette, pulmonary vascularity and flor are within nor mal limits. No evident airspace disease, pneumothorax, or pleural effusion. IMPRESSION: No acute cardiopulmonary process.
[2018-07-15 11:06] LABS: ALT 30 U/L (9-52); AST 35 U/L (14-36); Albumin 3.3 g/dL (3.5-5.0); Alkaline Phosphatase 108 U/L (38-126); Anion Gap 8 mmol/L; Anisocytosis Slight; Blood Urea Nitrogen 13 mg/dL (7-17); Calcium 8.3 mg/dL (8.4-10.2); Carbon Dioxide 25 mmol/L (22-30); Chloride 106 mmol/L (98-107); Glucose 81 mg/dL (74-99); Hypochromasia Slight; MCH 29.9 pg (25.0-35.0); MCV 85.3 fL (80.0-100.0); Mean Platelet Volume 7.4; Poikilocytosis Marked; Potassium 3.9 mmol/L (3.5-5.1); RBC 2.27 m/uL (3.80-5.40); RDW 18.2 % (11.5-15.5); Sodium 139 mmol/L (137-145); Total Bilirubin 1.4 mg/dL (0.2-1.3); Total Protein 5.7 g/dL (6.3-8.2)
[2018-07-15 11:10] LABS: HGB 6.8 gm/dL (11.4-16.0)
[2018-07-15 11:11] LABS: HCT 19.4 % (34.0-46.0); INR 1.1 (<1.2); Partial Thromboplastin Time 27.4 sec (22.0-30.0); Platelet Count 11 k/uL (150-450); Prothrombin Time 10.4 sec (9.0-12.0)
[2018-07-15 11:16] LABS: Creatine Kinase <20 U/L (30-135)
[2018-07-15 11:29] LABS: Creatine Kinase MB <0.2 ng/mL (0.0-2.4); Troponin I <0.012 ng/mL (0.000-0.034)
[2018-07-15 11:33] LABS: Appearance,Urine Clear (Clear); Bilirubin,Urine Negative (Negative); Blood,Urine Negative (Negative); Color,Urine Yellow; Glucose,Urine (UA) Negative (Negative); Ketones,Urine Negative (Negative); Leukocyte Esterase,Urine Negative (Negative); Nitrite,Urine Negative (Negative); Protein,Urine Trace (Negative); Specific Gravity,Urine 1.019 (1.001-1.035); Urobilinogen,Urine <2.0 mg/dL (<2.0)
[2018-07-15 11:33] LABS: Band Neutrophils % 7 %; Metamyelocytes % 5 %; Myelocytes % 10 %; Neutrophils % (M) 35 %
[2018-07-15 11:36] LABS: Nucleated Red Blood Cells 17 /100 WBC (0-0); Polychromasia Present; Total Cells Counted 200
--- NOTE | 2018-07-15 12:40 | CT ---
EXAMINATION TYPE: CT brain wo con DATE OF EXAM: 07/15/2018 COMPARISON: 02/03/2018 INDICATION: episode of unresponsiveness, history of leukemia DLP: 1087 mGycm, Automated exposure control for dose reduction was used. CONTRAST: None CT of the brain is performed utilizing 3 mm thick sections through the posterior fossa and 3 mm thick sections through the remaining calvarium. Study is performed within 24 hours of arrival to the hosp ital. No abnormal hyperdensity is present to suggest an acute intracranial hemorrhage. There is a curvilinear extra-axial collection within the right parietal region measuring 2.8 cm in di ameter with a depth of 2.0 cm. This has mass effect on the adjacent brain. Some edema is adjacent wit hin the brain. Additional smaller curvilinear high density collections are along the right calvarium. This would include previously described thickening along the posterior parietal-occipital region cur rently with a depth of 0.8 cm and an area along the right frontal region with a depth of 1.3 cm. The larger area has developed over the interval with some apparent thickening of the additional areas fro m previous examination. 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 Subdural hemat ólpez could be within the differential. There is mild compression of the lateral ventricle. No midline shift is evident. Periventricular whit e matter hypodensity is present, likely on the basis of chronic white matter ischemic changes. Be geminal plate and ambient cistern are patent. There are postsurgical changes present including left frontal right temporal craniotomies. A left tem poral craniotomy is evident. No acute infarcts are evident. Remaining ventricles and sulci are appropriate for the patient age. Paranasal sinuses and mastoid air cells within the [id number] are clear. IMPRESSIONS: 1. Increasing size of slightly hyperdense extradural collection along the right parietal region. Th is has impression on the adjacent brain. 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 Add itional smaller ones are adjacent. Subdural hematoma could be considered. Report was called to the em ergency room Dr Lang by Dr. Godoy by telephone at the time of interpretation.
--- NOTE | 2018-07-15 12:47 | CT ---
EXAMINATION TYPE: CT chest w con DATE OF EXAM: 07/15/2018 COMPARISON: Chest x-ray 07/15/2018 HISTORY: Recent port removal from Rt anterior chest, pain and swelling at site CT DLP: 161.1 mGycm Automated exposure control for dose reduction was used. CONTRAST: CT scan of the chest is performed with IV Contrast, patient injected with 100 mL of Isovue 300. FINDINGS: LUNGS: The lungs are grossly clear, there is no concerning parenchymal mass or nodule identified. Min imal basilar atelectatic changes are present. There is no pleural effusion or pneumothorax seen. Th e tracheobronchial tree is patent. MEDIASTINUM: There are no greater than 1 cm hilar or mediastinal lymph nodes. No pericardial effusi on is seen. AORTA: No additional significant abnormality is seen. Coronary artery calcifications are present. OTHER: Along the anterior chest wall on the right there is a fluid collection present with local per ipheral increased density suggestive of abscess or phlegmon. Spleen is enlarged with masses consiste nt with patient history of leukemia. IMPRESSION: chest wall abscess vs hematoma or seroma.
[2018-07-15] MEDS ORDERED: SODIUM CHLORIDE 0.9% 1,000 ML IV ONE (14:33)
[2018-07-15] MEDS ORDERED: VANCOMYCIN IV PER PHARMACY 1 EACH MISC MISCELLANE PRN (14:33)
[2018-07-15] MEDS ORDERED: PIPERACILLIN-TAZOBACTAM 3.375 GM in SODIUM CHLORIDE 0.9% 100 ML IVPB STA (14:33)
[2018-07-15] MEDS ORDERED: VANCOMYCIN 1,000 MG in SODIUM CHLORIDE 0.9% 250 ML IVPB STA (14:40)
[2018-07-15 18:12] LABS: Anisocytosis Slight; HCT 20.8 % (34.0-46.0); HGB 7.1 gm/dL (11.4-16.0); Hypochromasia Slight; MCH 29.5 pg (25.0-35.0); MCHC 33.9 g/dL (31.0-37.0); Mean Platelet Volume 6.8; Poikilocytosis Moderate; RBC 2.39 m/uL (3.80-5.40); RDW 17.4 % (11.5-15.5)
[2018-07-15 19:23] LABS: Band Neutrophils % 14 %; Blast Cells # (M) 1.58 k/uL (0); Lymphocytes # (M) 1.05 k/uL (1.0-4.8); Metamyelocytes # (M) 0.53 k/uL (0); Metamyelocytes % 7 %; Monocytes # (M) 0.53 k/uL (0-1.0); Myelocytes % 16 %; Neutrophils % (M) 21 %; Nucleated Red Blood Cells 18 /100 WBC (0-0); Platelet Count 11 k/uL (150-450); Polychromasia Present; Promyelocytes # (M) 0.23 k/uL (0); Promyelocytes % 3 %; Total Cells Counted 200; WBC 7.5 k/uL (3.8-10.6)
[2018-07-15 19:24] LABS: Poikilocytosis (M) Present; Tear Drop Cells Present
[2018-07-15 20:47] LABS: Anisocytosis Slight; HCT 23.8 % (34.0-46.0); Hypochromasia Moderate; MCH 29.7 pg (25.0-35.0); MCHC 33.7 g/dL (31.0-37.0); MCV 88.4 fL (80.0-100.0); Mean Platelet Volume 7.9; Poikilocytosis Moderate; RBC 2.69 m/uL (3.80-5.40); RDW 17.3 % (11.5-15.5)
[2018-07-15 21:39] LABS: Platelet Count 10 k/uL (150-450)
[2018-07-15 22:01] LABS: Band Neutrophils % 15 %; Metamyelocytes % 7 %; Myelocytes % 18 %; Neutrophils % (M) 32 %; Promyelocytes % 2 %
[2018-07-15 22:02] LABS: Blast Cells # (M) 1.53 k/uL (0); Monocytes # (M) 0.34 k/uL (0-1.0); Myelocytes # (M) 1.53 k/uL (0); Nucleated Red Blood Cells 15 /100 WBC (0-0); Poikilocytosis (M) Present; Polychromasia Present; Promyelocytes # (M) 0.17 k/uL (0); Total Cells Counted 200; WBC 8.5 k/uL (3.8-10.6)
--- NOTE | 2018-07-15 22:47 | P.CONS ---
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 She had a bone marrow aspiration biopsy done at [facility] confirming the diagnosis. She was supposed to be seen by myself in the office in 11/08 but decided to follow up at the nearest [facility]. The patient was treated by Dr. Summers for her MF. She and her are somewhat poor historians and were supportive to provide exact details of regimens candidates of treatment. It appears that she did receive Jakafi for myelofibrosis which was effective for several months. Some months ago she transformed into acute myeloid leukemia. She was treated with induction chemotherapy, and was admitted to the hospital for about 8 weeks. She was discharged about 3 weeks ago. It is not clear if she achieved complete remission or partial remission, though from the history available at her counts it does not appear that the remission was complete. It appears that additional treatment was recommended with extended dosing of hypomethylating agent. The patient has not started that yet. In addition she's being evaluated for an allogeneic bone marrow transplant. According to her , nor has been found in [place]. The patient had a port removed about a week ago. She developed progressive discoloration, swelling and discomfort in that area. She came to the ER today complaining of progressive weakness as well as increased headache. On inspection the port site was grossly abnormal with swelling, fluctuation in discoloration. Imaging revealed evidence of fluid collection with suspicion for abscess. She spiked a temperature of 100.9. She was also anemic with hemoglobin 6.8. Her CT of the brain did not show any intracranial bleed but did show evidence of extradural mass lesions with mild mass effect on the brain parenchyma on the left. This was discussed in detail with the ER physician. Patient was admitted for further management. She denied any obvious bleeding Review of Systems Constitutional: Reports fatigue, Reports fever, Reports poor appetite, Reports weakness Eyes: denies blurred vision, denies pain Ears: deny: decreased hearing, ear discharge, earache, tinnitus Ears, nose, mouth and throat: Denies headache, Denies sore throat Cardiovascular: Reports dyspnea on exertion Respiratory: Reports dyspnea Gastrointestinal: Denies abdominal pain, Denies diarrhea, Denies nausea, Denies vomiting Genitourinary: Denies dysuria, Denies hematuria Menstruation: Reports postmenopausal Musculoskeletal: Reports muscle weakness Integumentary: Reports color changes, Reports wounds Neurological: Reports headaches, Reports memory loss, Reports weakness Psychiatric: Reports difficulty concentrating, Reports memory loss Endocrine: Reports fatigue, Reports weight change Hematologic/Lymphatic: Reports as per HPI, Reports easy bruising Past Medical History Past Medical History: Blood Disorder, Cancer, Neurologic Disorder Additional Past Medical History / Comment(s): pt has had a pne vaccine but not sure when-continuity writer unable to verify date at time of this admit,please f/u with office in am. BLADDER INCONTINENCE. MS. BONE MARROW CANCER. RESTLESS LEGS. ESSENTIAL THROMBOCYTHEMIA. 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 raynaud's. MYELOPROLIFERATIVE NEOPLASM.-leukemia. received chemo last in apr 2018 History of Any Multi-Drug Resistant Organisms: None Reported Past Surgical History: Section, Hysterectomy Additional Past Surgical History / Comment(s): LAPAROTOMY, craniotomy/ memingioma removed,developed a subcutaneous hematoma had sx for that.. SUBCLAVIAN PORT INSERTION.-mediport removed Past Anesthesia/Blood Transfusion Reactions: Motion Sickness Smoking Status: Former smoker - Past Family History Mother Family Medical History: Cancer Additional Family Medical History / Comment(s): BONE CANCER. SMOKER. Father Family Medical History: Myocardial Infarction ([place]) Additional Family Medical History / Comment(s): cardiac arrest at age 60 Medications and Allergies Home Medications Medication Instructions Recorded Confirmed Type Cefadroxil [Duricef Susp] 500 mg PO BID 07/15/18 07/15/18 History Allergies Allergy/AdvReac Type Severity Reaction Status Date / Time No Known Allergies Allergy Verified 06/26/18 08:39 Physical Exam Vitals: Vital Signs Temp Pulse Resp BP Pulse Ox 07/15/18 19:10 98.0 F 81 18 109/61 96 07/15/18 18:50 79 16 101/57 97 07/15/18 18:30 71 16 97/54 96 07/15/18 18:10 75 16 97/54 97 07/15/18 17:50 74 16 93/59 97 07/15/18 17:10 73 16 91/54 95 07/15/18 16:50 75 15 86/51 96 07/15/18 16:40 74 11 L 86/51 96 07/15/18 16:30 98.0 F 74 0 L 82/58 96 07/15/18 16:20 70 7 L 85/54 96 07/15/18 16:10 70 5 L 85/54 97 07/15/18 16:00 69 15 95/62 97 07/15/18 15:00 80 16 97/62 97 07/15/18 14:20 97.8 F 79 17 97/62 95 07/15/18 13:50 97.6 F 78 17 100/57 96 07/15/18 13:40 98.3 F 78 17 93/57 95 07/15/18 12:30 79 18 90/59 96 07/15/18 11:11 95 18 95/59 96 07/15/18 09:44 93 17 99 07/15/18 09:19 100.9 F H 99 18 105/63 96 Intake and Output 07/15/18 07/15/18 07/15/18 06:59 14:59 22:59 Intake Total 0 310 Balance 0 310 Intake: Blood Product 0 310 Rc As-1 Unit 0 310 [id number] Other: Weight 48.897 kg - Constitutional Drowsy, lethargic, mildly difficult to arouse. General appearance: no acute distress - EENT Eyes: EOMI, PERRLA ENT: hearing grossly normal, normal oropharynx - Neck Neck: no lymphadenopathy Thyroid: bilateral: normal size - Respiratory Respiratory: bilateral: CTA - Cardiovascular Rhythm: regular Heart sounds: normal: S1, S2 - Gastrointestinal General gastrointestinal: normal bowel sounds, soft - Integumentary A 6 cm area right upper chest wall at the site of previous port. Bluish neri discoloration with areas of pinkish red discoloration, and fluctuations. Tender to palpation - Neurologic Neurologic: CNII-XII intact - Musculoskeletal Musculoskeletal: generalized weakness, strength equal bilaterally - Psychiatric Recall is mildly diminished Psychiatric: A&O x's 3, appropriate affect Results CBC & Chem 7: 07/15/18 20:23 07/15/18 09:34 Labs: Abnormal Lab Results - Last 24 Hours (Table) 07/15/18 07/15/18 07/15/18 Range/Units 09:34 09:34 09:34 RBC 2.27 L (3.80-5.40) m/uL Hgb 6.8 L* (11.4-16.0) gm/dL Hct 19.4 L* (34.0-46.0) % RDW 18.2 H (11.5-15.5) % Plt Count 11 L* (150-450) k/uL Blast Cells % 7 H* % Monocytes # (Manual) 1.50 H (0-1.0) k/uL Metamyelocytes # (Man) 0.50 H (0) k/uL Myelocytes # (Manual) 1.00 H (0) k/uL Promyelocytes # (Man) (0) k/uL Blast Cells # (Man) 0.70 H (0) k/uL Nucleated RBCs 17 H (0-0) /100 WBC Creatinine 0.44 L (0.52-1.04) mg/dL Calcium 8.3 L (8.4-10.2) mg/dL Total Bilirubin 1.4 H (0.2-1.3) mg/dL Total Creatine Kinase <20 L (30-135) U/L Total Protein 5.7 L (6.3-8.2) g/dL Albumin 3.3 L (3.5-5.0) g/dL Urine Protein (Negative) Crossmatch 07/15/18 07/15/18 07/15/18 Range/Units 09:34 09:45 17:40 RBC 2.39 L (3.80-5.40) m/uL Hgb 7.1 L (11.4-16.0) gm/dL Hct 20.8 L (34.0-46.0) % RDW 17.4 H (11.5-15.5) % Plt Count 11 L* (150-450) k/uL Blast Cells % 21 H* % Monocytes # (Manual) (0-1.0) k/uL Metamyelocytes # (Man) 0.53 H (0) k/uL Myelocytes # (Manual) 1.20 H (0) k/uL Promyelocytes # (Man) 0.23 H (0) k/uL Blast Cells # (Man) 1.58 H (0) k/uL Nucleated RBCs 18 H (0-0) /100 WBC Creatinine (0.52-1.04) mg/dL Calcium (8.4-10.2) mg/dL Total Bilirubin (0.2-1.3) mg/dL Total Creatine Kinase (30-135) U/L Total Protein (6.3-8.2) g/dL Albumin (3.5-5.0) g/dL Urine Protein Trace H (Negative) Crossmatch See Detail Chest x-ray: report reviewed CT scan - chest: report reviewed CT Scan - head: report reviewed Assessment and Plan (1) Chest wall abscess Narrative/Plan: The patient appears to have developed an area infected and/or inflamed fluid collection in the right chest wall at the site of port removal. She has been placed on antibiotics. Her neutrophil count is greater than 1000. Continue antibiotics. She will need to be assessed for incision and drainage. That will be complicated by her low platelet count, but can be performed, if needed, with platelet transfusions given at the time of procedure. Current Visit: Yes Status: Acute Code(s): L02.213 - CUTANEOUS ABSCESS OF CHEST WALL SNOMED Code(s): 07942690 (2) Bicytopenia Narrative/Plan: Due to antineoplastic chemotherapy as well as likely underlying residual AML/ myelofibrosis. Patient has been transfused. Continue to monitor and transfuse for hemoglobin less than 7, and platelets less than 10 (unless actively bleeding ). Only radiated blood products should be used The same was discussed with the ER physician Current Visit: Yes Status: Acute Code(s): D75.89 - OTHER SPECIFIED DISEASES OF BLOOD AND BLOOD-FORMING ORGANS SNOMED Code(s): 063467559 (3) Acute myeloid leukemia Narrative/Plan: This is evolved from myelofibrosis. The history provided was not very exact, but appears that the patient has undergone induction treatment. They were not able to state that the patient was in complete or partial remission. She has cytopenias, as well as left shift which could indicate a less than complete remission, or could be due to the underlying myelofibrosis. The patient will continue follow-up at the [facility] once improved from her acute issues. Current Visit: Yes Status: Acute Code(s): C92.00 - ACUTE MYELOBLASTIC LEUKEMIA, NOT HAVING ACHIEVED REMISSION SNOMED Code(s): 03383064 (4) Brain mass Narrative/Plan: CT scan confirms the presence of extradural masses. 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 She states that the nodule on her forehead has been present for a significant period of time before evolution of AML. Therefore it is also possible that these represent agnogenic myeloid metaplasia due to her MF Current Visit: Yes Status: Acute Code(s): G93.9 - DISORDER OF BRAIN, UNSPECIFIED SNOMED Code(s): 659340311
[2018-07-15] MEDS: PIPERACILLIN-TAZOBACTAM 3.375 GM in SODIUM CHLORIDE 0.9% 100 ML IVPB SCH (23:41)
[2018-07-16] MEDS: ACETAMINOPHEN TAB 325 MG TAB PO PRN ×2 (03:52→16:37)
[2018-07-16] MEDS: CHERRY FLAVOR 60 ML BOTTLE PO SCH ×4 (05:25→23:16)
[2018-07-16] MEDS: VANCOMYCIN ORAL SOLUTION 250 MG/5 ML BOTTLE PO SCH ×4 (05:25→23:16)
[2018-07-16] MEDS ORDERED: VANCOMYCIN 1,000 MG in SODIUM CHLORIDE 0.9% 250 ML IVPB SCH (06:00)
[2018-07-16 09:24] LABS: Anisocytosis Slight; HCT 25.7 % (34.0-46.0); HGB 8.5 gm/dL (11.4-16.0); Hypochromasia Moderate; MCH 29.3 pg (25.0-35.0); MCHC 33.2 g/dL (31.0-37.0); MCV 88.3 fL (80.0-100.0); Mean Platelet Volume 8.1; Poikilocytosis Marked; RBC 2.91 m/uL (3.80-5.40); RDW 17.6 % (11.5-15.5); WBC 18.8 k/uL (3.8-10.6)
[2018-07-16] MEDS: PIPERACILLIN-TAZOBACTAM 3.375 GM in SODIUM CHLORIDE 0.9% 100 ML IVPB SCH (09:27)
[2018-07-16 09:31] LABS: Platelet Count 11 k/uL (150-450)
[2018-07-16 12:51] VITALS: BMI 17.6
[2018-07-16] MEDS: CHOLESTYRAMINE (WITH SUGAR) 4 GM PACKET PO SCH (17:32)
--- NOTE | 2018-07-16 18:39 | P.HPIM ---
History of Present Illness H&P Date: 07/16/18 Chief Complaint: Weakness, fever, This is a pleasant 67-year-old lady patient of Dr. Stewart Hernandez, who was diagnosed to have aggressive myelofibrosis in 2017, confirmed by bone marrow biopsy at [facility], now follows by [facility] physician Dr. Summers and she has been receiving chemotherapy for acute myeloid leukemia, and was treated with induction chemotherapy admitted to the hospital for about 8 weeks, and was discharged 3 weeks ago. She received her last chemotherapy 3 weeks ago to a right chest wall port that was placed locally here by Dr. Lundberg . The port was functioning well at that time, he requires flushing treatments. patient now comes in with hypotension, patient's to drop and thereafter collapsed. Patient denies any syncope, patient's lightheaded, patient is increasingly weak, has no nausea however this had watery stools, chest wall is more swollen the use well, with some edema and some hematoma, patient has no abdominal pain, has some bright red bloody stools, for the past 3 days. In the emergency room, patient was admitted with a concern that there might be a chest wall abscess, she did have a temperature spiking up to 100.9, CAT scan shows fluid collection with a suspicion of abscess based on CT, hemoglobin was 6.8, CT of the brain did not show any intracranial bleed or abscess, but did show evidence of extradural mass lesion with mild mass effect on the brain parenchyma on the left. 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 Review of Systems Constitutional: Reports as per HPI, Reports anorexia, Denies chills, Denies chronic headaches, Denies chronic pain, Denies daytime sleepiness, Denies fatigue, Denies fever, Denies lethargy, Denies malaise, Denies night sweats, Denies poor appetite, Denies sweats, Denies weakness, Denies weight gain, Denies weight loss Ears, nose, mouth and throat: Reports as per HPI, Denies ant. neck pain, Denies bleeding gums, Denies dental pain, Denies dysphagia, Denies epistaxis, Denies headache, Denies hoarseness, Denies mouth pain, Denies nasal congestion, Denies nasal discharge, Denies neck fullness/pressure, Denies neck lump, Denies nose pain, Denies odynophagia, Denies post-nasal drip, Denies sinus pain, Denies sinus pressure, Denies swelling in mouth, Denies swelling in throat, Denies sore throat, Denies vertigo, Denies voice changes Cardiovascular: Reports as per HPI, Denies chest pain, Denies claudication, Denies decreased exercise tolerance, Denies dyspnea on exertion, Denies edema, Denies high blood pressure, Denies irregular heart beat, Denies leg edema, Denies lightheadedness, Denies orthopnea, Denies palpitations, Denies paroxysmal nocturnal dyspnea, Denies phlebitis, Denies rapid heart beat, Denies shortness of breath, Denies syncope Respiratory: Reports as per HPI, Denies congestion, Denies cough, Denies cough with sputum, Denies dyspnea, Denies excessive sputum, Denies hemoptysis, Denies home oxygen, Denies pain, Denies pain on inspiration, Denies pleurisy, Denies respiratory infections, Denies sleep apnea, Denies snoring, Denies wheezing Gastrointestinal: Reports as per HPI, Reports abdominal pain, Reports change in bowel habits, Reports diarrhea, Reports loss of appetite, Reports nausea Genitourinary: Reports as per HPI, Denies abnormal vaginal bleeding, Denies decreased libido, Denies difficulty conceiving, Denies difficulty voiding, Denies dysmenorrhea, Denies dyspareunia, Denies dysuria, Denies flank pain, Denies genital sores, Denies hematuria, Denies hot flashes, Denies incomplete emptying, Denies kidney stones, Denies menorrhagia, Denies mixed incontinence, Denies nocturia, Denies pelvic pain, Denies post void dribbling, Denies , Denies prolapse symptoms, Denies stress incontinence, Denies urge incontinence , Denies urgency, Denies urinary frequency, Denies vaginal discharge, Denies vaginal dryness, Denies vaginal itching, Denies vaginal odor Menstruation: Reports as per HPI, Reports postmenopausal Musculoskeletal: Reports as per HPI Integumentary: Reports as per HPI Neurological: Reports as per HPI, Reports headaches, Reports weakness, Denies aphasia, Denies ataxia, Denies balance difficulties, Denies burning pain, Denies change in mentation, Denies change in smell/taste, Denies change in speech, Denies confusion, Denies convulsions, Denies double vision, Denies gait dysfunction, Denies head injury, Denies hearing difficulties, Denies lack of coordination, Denies loss of vision, Denies memory loss, Denies migraines, Denies motor disturbance, Denies numbness, Denies paralysis, Denies paresthesias , Denies seizures, Denies sensory deficit, Denies spasticity, Denies syncope, Denies tic, Denies tingling, Denies transient paralysis, Denies tremors, Denies vertigo, Denies visual changes Psychiatric: Reports as per HPI, Denies anhedonia, Denies anxiety, Denies anxiety attacks, Denies change in appetite, Denies change in libido, Denies change in sleep habits, Denies confusion, Denies depression, Denies difficulty concentrating, Denies disorientation, Denies hallucinations, Denies hopelessness , Denies hypersomnia, Denies insomnia, Denies irritability, Denies memory loss, Denies mood swings, Denies paranoia, Denies sadness/tearfulness, Denies sleep disturbances, Denies suicidal ideation Endocrine: Reports as per HPI, Denies cold intolerance, Denies deepening of the voice, Denies excessive sweating, Denies excessive thirst, Denies fatigue, Denies flushing, Denies heat intolerance, Denies high blood sugars, Denies increase in ring/shoe/hat size, Denies low blood sugars, Denies nocturia, Denies palpitations, Denies polydipsia, Denies polyphagia, Denies polyuria, Denies proptosis, Denies recent glucocorticoid use, Denies thyroid mass, Denies weight change Hematologic/Lymphatic: Reports as per HPI, Denies easy bleeding, Denies easy bruising, Denies lymphadenopathy, Denies lymphedema, Denies thrombophilia Allergic/Immunologic: Reports as per HPI, Denies allergic rhinitis, Denies anaphylaxis, Denies angioedema, Denies gluten intolerance, Denies persistent infections, Denies seasonal allergies, Denies urticaria, Denies wheezing Past Medical History Past Medical History: Blood Disorder, Cancer, Neurologic Disorder Additional Past Medical History / Comment(s): Received pna vax - unsure when. Bladder incontinence, MS, myelofibrosis 2017 confirmed by bone marrow aspiration - advanced to acute myeloid leukemia, RLS, essential thrombocytopenia , meningioma on brainstem, Raynaud's, last chemo Apr 2018 History of Any Multi-Drug Resistant Organisms: C-DIFF Date of last positivie culture/infection: 07-15-18 MDRO Source:: Stool Past Surgical History: Section, Hysterectomy Additional Past Surgical History / Comment(s): Laparotomy, craniotomy/ meningioma removed (developed subcutaneous hematoma - surgery), subclavian port insertion with removal Jun 2018. Past Anesthesia/Blood Transfusion Reactions: Motion Sickness Past Psychological History: No Psychological Hx Reported Smoking Status: Former smoker Past Alcohol Use History: Occasional Past Drug Use History: None Reported - Past Family History Mother Family Medical History: Cancer Additional Family Medical History / Comment(s): Bone cancer - smoker. Father Family Medical History: Myocardial Infarction (VT) Additional Family Medical History / Comment(s): Cardiac arrest at age 60 Medications and Allergies Home Medications Medication Instructions Recorded Confirmed Type Cefadroxil [Duricef Susp] 500 mg PO BID 07/15/18 07/15/18 History Allergies Allergy/AdvReac Type Severity Reaction Status Date / Time No Known Allergies Allergy Verified 06/26/18 08:39 Physical Exam Vitals: Vital Signs Temp Pulse Pulse Resp BP BP Pulse Ox 07/16/18 05:30 98.1 F 88 16 100/52 97 07/15/18 21:08 96.3 F L 82 20 118/60 98 07/15/18 19:10 98.0 F 81 18 109/61 96 07/15/18 18:50 79 16 101/57 97 07/15/18 18:30 71 16 97/54 96 07/15/18 18:10 75 16 97/54 97 07/15/18 17:50 74 16 93/59 97 07/15/18 17:10 73 16 91/54 95 07/15/18 16:50 75 15 86/51 96 07/15/18 16:40 74 11 L 86/51 96 07/15/18 16:30 98.0 F 74 0 L 82/58 96 07/15/18 16:20 70 7 L 85/54 96 07/15/18 16:10 70 5 L 85/54 97 07/15/18 16:00 69 15 95/62 97 07/15/18 15:00 80 16 97/62 97 07/15/18 14:20 97.8 F 79 17 97/62 95 07/15/18 13:50 97.6 F 78 17 100/57 96 07/15/18 13:40 98.3 F 78 17 93/57 95 07/15/18 12:30 79 18 90/59 96 Intake and Output 07/15/18 07/16/18 07/16/18 22:59 06:59 14:59 Intake Total 310 175 Balance 310 175 Intake: Oral 175 Blood Product 310 Rc As-1 Unit 310 [id number] Other: Voiding Method Bedside Commode Bedside Commode # Voids 1 3 # Bowel Movements 1 2 Weight 49.442 kg - Constitutional General appearance: average body habitus, cooperative, no acute distress - EENT Eyes: anicteric sclerae, EOMI, PERRLA ENT: hearing grossly normal, NA/AT, normal oropharynx - Neck Neck: normal ROM Thyroid: bilateral: normal size - Respiratory Respiratory: bilateral: CTA, negative: diminished, dullness, rales, rhonchi, wheezing, prolonged expiration - Cardiovascular Rhythm: regular Heart sounds: normal: S1, S2 Abnormal Heart Sounds: no systolic murmur, no diastolic murmur, no rub, no S3 Gallop, no S4 Gallop, no click, no other - Gastrointestinal General gastrointestinal: no absent bowel sounds, no decreased bowel sounds, no distended, no hepatomegaly, no hyperactive bowel sounds, normal bowel sounds, no organomegaly, no rigid, no scaphoid, no soft, splenomegaly, no tenderness, no umbilical hernia, no ventral hernia - Integumentary Integumentary: decreased turgor, normal - Neurologic Neurologic: CNII-XII intact - Musculoskeletal Musculoskeletal: gait normal, generalized weakness - Psychiatric Psychiatric: A&O x's 3, appropriate affect, intact judgment & insight Results CBC & Chem 7: 07/16/18 08:37 07/15/18 09:34 Labs: Abnormal Lab Results - Last 24 Hours (Table) 07/15/18 07/15/18 07/15/18 Range/Units 09:34 17:40 20:23 WBC (3.8-10.6) k/uL RBC 2.39 L 2.69 L (3.80-5.40) m/uL Hgb 7.1 L 8.0 L (11.4-16.0) gm/dL Hct 20.8 L 23.8 L (34.0-46.0) % RDW 17.4 H 17.3 H (11.5-15.5) % Plt Count 11 L* 10 L* (150-450) k/uL Blast Cells % 21 H* 18 H* % Lymphocytes # (Manual) 0.60 L (1.0-4.8) k/uL Metamyelocytes # (Man) 0.53 H 0.60 H (0) k/uL Myelocytes # (Manual) 1.20 H 1.53 H (0) k/uL Promyelocytes # (Man) 0.23 H 0.17 H (0) k/uL Blast Cells # (Man) 1.58 H 1.53 H (0) k/uL Nucleated RBCs 18 H 15 H (0-0) /100 WBC C. difficile (EIA) Intrp (Negative) Crossmatch See Detail 07/15/18 07/16/18 Range/Units 20:56 08:37 WBC 18.8 H (3.8-10.6) k/uL RBC 2.91 L (3.80-5.40) m/uL Hgb 8.5 L (11.4-16.0) gm/dL Hct 25.7 L (34.0-46.0) % RDW 17.6 H (11.5-15.5) % Plt Count 11 L* (150-450) k/uL Blast Cells % % Lymphocytes # (Manual) (1.0-4.8) k/uL Metamyelocytes # (Man) (0) k/uL Myelocytes # (Manual) (0) k/uL Promyelocytes # (Man) (0) k/uL Blast Cells # (Man) (0) k/uL Nucleated RBCs (0-0) /100 WBC C. difficile (EIA) Intrp Positive A (Negative) Crossmatch Microbiology - Last 24 Hours (Table) 07/15/18 09:45 Urine Culture - Preliminary Urine,Voided Laboratory Results WBC 18.8 k/uL (3.8-10.6) H 07/16/18 08:37 RBC 2.91 m/uL (3.80-5.40) L 07/16/18 08:37 Hgb 8.5 gm/dL (11.4-16.0) L 07/16/18 08:37 Hct 25.7 % (34.0-46.0) L 07/16/18 08:37 MCV 88.3 fL (80.0-100.0) 07/16/18 08:37 MCH 29.3 pg (25.0-35.0) 07/16/18 08:37 MCHC 33.2 g/dL (31.0-37.0) 07/16/18 08:37 RDW 17.6 % (11.5-15.5) H 07/16/18 08:37 Plt Count 11 k/uL (150-450) L* 07/16/18 08:37 Neutrophils % (Manual) 32 % 07/15/18 20:23 Band Neutrophils % 15 % 07/15/18 20:23 Lymphocytes % (Manual) 7 % 07/15/18 20:23 Monocytes % (Manual) 4 % 07/15/18 20:23 Basophils % (Manual) 1 % 07/15/18 09:34 Metamyelocytes % 7 % 07/15/18 20:23 Myelocytes % 18 % 07/15/18 20:23 Promyelocytes % 2 % 07/15/18 20:23 Blast Cells % 18 % H* 07/15/18 20:23 Neutrophils # (Manual) 3.90 k/uL (1.3-7.7) 07/15/18 20:23 Lymphocytes # (Manual) 0.60 k/uL (1.0-4.8) L 07/15/18 20:23 Monocytes # (Manual) 0.34 k/uL (0-1.0) 07/15/18 20:23 Basophils # (Manual) 0.10 k/uL (0-0.2) 07/15/18 09:34 Metamyelocytes # (Man) 0.60 k/uL (0) H 07/15/18 20:23 Myelocytes # (Manual) 1.53 k/uL (0) H 07/15/18 20:23 Promyelocytes # (Man) 0.17 k/uL (0) H 07/15/18 20:23 Blast Cells # (Man) 1.53 k/uL (0) H 07/15/18 20:23 Nucleated RBCs 15 /100 WBC (0-0) H 07/15/18 20:23 Manual Slide Review Performed 07/15/18 20:23 Polychromasia Present 07/15/18 20:23 Hypochromasia Moderate 07/16/18 08:37 Poikilocytosis Marked 07/16/18 08:37 Poikilocytosis (manual Present 07/15/18 20:23 Anisocytosis Slight 07/16/18 08:37 Tear Drop Cells Present 07/15/18 17:40 PT 10.4 sec (9.0-12.0) 07/15/18 09:34 INR 1.1 (<1.2) 07/15/18 09:34 APTT 27.4 sec (22.0-30.0) 07/15/18 09:34 Sodium 139 mmol/L (137-145) 07/15/18 09:34 Potassium 3.9 mmol/L (3.5-5.1) 07/15/18 09:34 Chloride 106 mmol/L (98-107) 07/15/18 09:34 Carbon Dioxide 25 mmol/L (22-30) 07/15/18 09:34 Anion Gap 8 mmol/L 07/15/18 09:34 BUN 13 mg/dL (7-17) 07/15/18 09:34 Creatinine 0.44 mg/dL (0.52-1.04) L 07/15/18 09:34 Est GFR (CKD-EPI)AfAm >90 (>60 ml/min/1.73 sqM) 07/15/18 09:34 Est GFR (CKD-EPI)NonAf >90 (>60 ml/min/1.73 sqM) 07/15/18 09:34 Glucose 81 mg/dL (74-99) 07/15/18 09:34 Plasma Lactic Acid Davide 0.7 mmol/L (0.7-2.0) 07/15/18 10:53 Calcium 8.3 mg/dL (8.4-10.2) L 07/15/18 09:34 Total Bilirubin 1.4 mg/dL (0.2-1.3) H 07/15/18 09:34 AST 35 U/L (14-36) 07/15/18 09:34 ALT 30 U/L (9-52) 07/15/18 09:34 Alkaline Phosphatase 108 U/L (38-126) 07/15/18 09:34 Total Creatine Kinase <20 U/L (30-135) L 07/15/18 09:34 CK-MB (CK-2) <0.2 ng/mL (0.0-2.4) 07/15/18 09:34 CK-MB (CK-2) Rel Index 07/15/18 09:34 Troponin I <0.012 ng/mL (0.000-0.034) 07/15/18 09:34 Total Protein 5.7 g/dL (6.3-8.2) L 07/15/18 09:34 Albumin 3.3 g/dL (3.5-5.0) L 07/15/18 09:34 Urine Color Yellow 07/15/18 09:45 Urine Appearance Clear (Clear) 07/15/18 09:45 Urine pH 6.0 (5.0-8.0) 07/15/18 09:45 Ur Specific [place] 1.019 (1.001-1.035) 07/15/18 09:45 Urine Protein Trace (Negative) H 07/15/18 09:45 Urine Glucose (UA) Negative (Negative) 07/15/18 09:45 Urine Ketones Negative (Negative) 07/15/18 09:45 Urine Blood Negative (Negative) 07/15/18 09:45 Urine Nitrite Negative (Negative) 07/15/18 09:45 Urine Bilirubin Negative (Negative) 07/15/18 09:45 Urine Urobilinogen <2.0 mg/dL (<2.0) 07/15/18 09:45 Ur Leukocyte Esterase Negative (Negative) 07/15/18 09:45 C. difficile (EIA) Intrp Positive (Negative) A 07/15/18 20:56 Blood Type O Positive 07/15/18 09:34 Blood Type Recheck No 07/15/18 09:34 Antibody Screen NEGATIVE 07/15/18 09:34 Crossmatch See Detail 07/15/18 09:34 Spec Expiration Date 07/18/2018 - 7062 07/15/18 09:34 Thrombosis Risk Factor Assmnt - DVT/VTE Prophylaxis DVT/VTE Prophylaxis: Mechanical Prophylaxis ordered, Contraindicated - See note - Choose All That Apply Each Risk Factor Represents 2 Points: Age 61-74 years, Malignancy Thrombosis Risk Factor Assessment Total Risk Factor Score: 4 Thrombosis Risk Factor Assessment Level: Moderate Risk Assessment and Plan Plan: 1. Acute C. difficile colitis with sepsis arising from this rather than the chest wall soft tissue accumulation seroma against abscess, infectious disease has been consulted, patient was started initially on IV Zosyn, however in view of the C. difficile colitis, this was discontinued until cultures will be obtained from an aspirate right chest wall. Dr. Krishna has been consulted, oral vancomycin to 50 mg and Questran. IV hydration labs to be monitored 2. Pancytopenia with recent series of chemotherapy last one was 3 weeks ago on her second series, awaiting stem cell transplant follow subcutaneous over them, consult with Dr. Correa for the pancytopenia 3. [facility] Sum[facility], oncologist. 4. 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 Prior history of meningioma with 2 brain surgeries craniotomy's in the past 5. Restless leg syndrome not on medications prior to admission 6. Swelling in port right side of the chest wall, seroma against abscess, has multiple swelling and scar tissue noted, recent manipulation 3 weeks ago, consult with Dr. renner and Dr. Lundberg, request needle aspirate to be obtained for culture purposes and Gram stain, Dr. Lundberg to perform 7. GI prophylaxis, IV Pepcid 8. DVT prophylaxis, conjugated for any chemical prophylaxis secondary to severe thrombus cytopenia, SCDs and ANI hose to be provided Prognosis guarded
[2018-07-16] MEDS: FAMOTIDINE 20 MG TAB PO SCH (21:30)
[2018-07-17] MEDS: CHERRY FLAVOR 60 ML BOTTLE PO SCH ×4 (05:27→23:55)
[2018-07-17] MEDS: VANCOMYCIN ORAL SOLUTION 250 MG/5 ML BOTTLE PO SCH ×4 (05:27→23:55)
[2018-07-17] MEDS: FAMOTIDINE 20 MG TAB PO SCH ×2 (07:51→20:38)
[2018-07-17] MEDS: ACETAMINOPHEN TAB 325 MG TAB PO PRN (07:57)
[2018-07-17] MEDS: CHOLESTYRAMINE (WITH SUGAR) 4 GM PACKET PO SCH ×2 (09:01→17:08)
[2018-07-17 09:13] LABS: Anisocytosis Slight; HCT 26.4 % (34.0-46.0); HGB 8.7 gm/dL (11.4-16.0); Hypochromasia Moderate; MCH 29.4 pg (25.0-35.0); MCHC 32.9 g/dL (31.0-37.0); MCV 89.3 fL (80.0-100.0); Mean Platelet Volume 7.4; Poikilocytosis Marked; RBC 2.95 m/uL (3.80-5.40); RDW 18.2 % (11.5-15.5)
[2018-07-17 09:15] LABS: Platelet Count 15 k/uL (150-450)
[2018-07-17 09:18] LABS: Anion Gap 8 mmol/L; Blood Urea Nitrogen 5 mg/dL (7-17); Calcium 8.1 mg/dL (8.4-10.2); Carbon Dioxide 23 mmol/L (22-30); Chloride 110 mmol/L (98-107); Glucose 102 mg/dL (74-99); Potassium 3.2 mmol/L (3.5-5.1); Sodium 141 mmol/L (137-145)
[2018-07-17 10:20] LABS: Band Neutrophils % 1 %; Metamyelocytes % 2 %; Myelocytes % 7 %; Neutrophils % (M) 55 %; Nucleated Red Blood Cells 7 /100 WBC (0-0); Total Cells Counted 200
[2018-07-17 10:21] LABS: Blast Cells # (M) 0.83 k/uL (0); Metamyelocytes # (M) 0.41 k/uL (0); Monocytes # (M) 1.04 k/uL (0-1.0); Myelocytes # (M) 1.45 k/uL (0); WBC 20.7 k/uL (3.8-10.6)
[2018-07-17 10:22] LABS: Polychromasia Present
--- NOTE | 2018-07-17 11:58 | CONS ---
CONSULTATION DATE OF SERVICE: 07/16/2018 REASON FOR CONSULTATION: 1. Chest wall collection, question of abscess versus seroma. 2. Diarrhea and C difficile. HISTORY OF PRESENT ILLNESS: The patient is a 67-year-old female with a past medical history significant for myelofibrosis diagnosed in 2017 and acute myeloid leukemia. The patient apparently has been in the process of getting a bone marrow transplant. She did have a right chest wall Mediport that apparently has been recently removed by Dr. Lundberg. The patient has been brought to the ER at [facility] after the patient apparently has been falling at home and has been feeling weak and tired and no energy. Patient also complaining of diarrhea that started about 2 days ago with multiple loose stools. No blood or mucus in it. She did have some crampy left lower abdominal pain, intensity is about 3 to 4 out of 10, and no radiation. Has been nauseated but no vomiting. With these symptoms, the patient was evaluated by the ER physician. On arrival to the ER, the patient did have a low grade fever of 100.9. She did have an elevated white count of 18.8. Blood cultures and urine has been negative so far. The patient did have CT of the chest obtained which did show anterior chest wall on the right, there is fluid collection present in the local peripheral increased density suggestive of possible abscess or phlegmon. I was asked to see the patient for further recommendation regarding antibiotic therapy. Patient currently being treated with broad- spectrum antibiotic in the form of vancomycin and Zosyn. REVIEW OF SYSTEMS: CONSTITUTIONAL: Positive for weakness along with the fever. EYES: No complaint. ENT: No complaint. RESPIRATORY: No complaint. CARDIOVASCULAR: No complaint. GENITOURINARY: No complaint. GASTROINTESTINAL: As per HPI. MUSCULOSKELETAL: No complaint. INTEGUMENTARY: As per HPI. PSYCHOLOGICAL: No complaint. ENDOCRINE: No complaint. NEUROLOGIC: No complaint. PAST MEDICAL HISTORY: Myelofibrosis, acute myeloid leukemia, restless legs syndrome, meningioma on the brainstem, Raynaud phenomena, and history of C difficile colitis. PAST SURGICAL HISTORY: , hysterectomy, laparotomy, craniotomy with meningioma removed, subclavian port insertion with removal June 2018. SOCIAL HISTORY: Remote history of smoking. Occasionally drinks. , lives with . FAMILY HISTORY: Mother with history of bone cancer. Father with PR and cardiac arrest age of 60. ALLERGIES: No known drug allergies. MEDICATIONS: Medications currently include the patient is vancomycin, pharmacy to dose, Zosyn, Pepcid, moran syrup, Tylenol and IV fluid. PHYSICAL EXAMINATION: On examination, her blood pressure is 108/61 with a pulse of 84, temperature 98, T-max 100.8. She is 99% on room air. General description is an elderly female up in the room in no distress. No tachypnea or accessory muscle of respiration use. HEENT examination shows pallor, no scleral icterus. Oral mucous membrane is dry. No pharyngeal erythema or thrush. NECK: Trachea central. No thyromegaly. LUNGS: Unlabored breathing, clear to auscultation anteriorly. No wheeze or crackle. HEART: S1, S2. Regular rate and rhythm. No added sounds. ABDOMEN: Soft, no tenderness. No guarding or rigidity. No organomegaly. Extremities: No edema of feet. Examination of the right chest wall did have an area slightly induration, minimal fluctuation but no significant redness or warmth was noticed. No drainage. NEUROLOGICAL: Patient is awake, alert, oriented x3. Mood and affect normal. LABS: Hemoglobin 8.5, white count 18.8. Stool for C difficile is positive. Blood culture has been negative so far. DIAGNOSTIC IMPRESSION AND PLAN: 1. Patient with right chest wall Mediport site of fluid collection, more likely representing a possible seroma, clinically doubt abscess or infected seroma as the patient seemed to have no significant symptoms referable to same and no clinical findings on examination. 2. The patient with low-grade fever and significant diarrhea likely secondary to the Clostridium difficile colitis. PLAN: 1. Discontinue the vancomycin and Zosyn. 2. Patient may benefit from vascular surgery evaluation for possible fluid and send for culture. 3. We will treat C difficile colitis with vancomycin 250 p.o. q.6 hours and Questran 4 grams q.12. 4. We will follow up on clinical condition and culture to further adjust medication if needed. Thank you for this consultation. Will follow this patient along with you. MMODL / IJN: [id number] /
--- NOTE | 2018-07-17 13:22 | CONS ---
CONSULTATION The patient is a 67-year-old female known to me. Patient has been diagnosed with myelofibrosis and patient is under care at [facility] with chemotherapy. I was seeing her because her Port-A-Cath was not working and she had a mass on the right chest wall which catheter was removed and we took some tissue biopsy at [facility] and the pathologist has sent the report for possible cancer. I was consulted for possibility of abscess formation of the right chest wall. This patient has been admitted with low hemoglobin. The patient was seen in her room. She is in sitting position. Neck is supple. Chest has some redness and some scar formation from the surgery. I see no evidence of any fluctuation. Good . Abdomen is soft. Femoral pulses are present. At this point, we will hold until we get the pathology report from the [facility]. I have discussed with Dr. Hobson. The patient might be going to the [facility] for further treatment. I did not see any fluctuation mass to the right anterior chest wall where the catheter has been removed. We will wait for the pathology and follow with you. MMODL / IJN: [id number] /
[2018-07-17] MEDS ORDERED: POTASSIUM CHLORIDE ER 20 MEQ TAB.ER PO STA (13:46)
--- NOTE | 2018-07-17 13:47 | P.PN ---
Subjective Progress Note Date: 07/17/18 This is a pleasant 67-year-old lady patient of Dr. Stewart Hernandez, who was diagnosed to have aggressive myelofibrosis in 2017, confirmed by bone marrow biopsy at [facility], now follows by [facility] physician Dr. Summers and she has been receiving chemotherapy for acute myeloid leukemia, and was treated with induction chemotherapy admitted to the hospital for about 8 weeks, and was discharged 3 weeks ago. She received her last chemotherapy 3 weeks ago to a right chest wall port that was placed locally here by Dr. Lundberg . The port was functioning well at that time, he requires flushing treatments. patient now comes in with hypotension, patient's to drop and thereafter collapsed. Patient denies any syncope, patient's lightheaded, patient is increasingly weak, has no nausea however this had watery stools, chest wall is more swollen the use well, with some edema and some hematoma, patient has no abdominal pain, has some bright red bloody stools, for the past 3 days. In the emergency room, patient was admitted with a concern that there might be a chest wall abscess, she did have a temperature spiking up to 100.9, CAT scan shows fluid collection with a suspicion of abscess based on CT, hemoglobin was 6.8, CT of the brain did not show any intracranial bleed or abscess, but did show evidence of extradural mass lesion with mild mass effect on the brain parenchyma on the left. 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 07/17: Patient has been seen by Dr. Correa and he has cleared her for I&D of the chest wall abscess if necessary platelet transfusions could be given. Patient to be transfused for hemoglobin less than 7 and platelets less than 10 unless active bleeding and radiated blood products are to be used. Patient to follow-up with [facility] oncology. 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 Lundberg has determine that he does not think there is anything to drain in chest wall lesion and will not be doing an I&D. Sutures may be removed if okay with Dr. Lundberg. Culture to be obtained if there is any drainage. Dr. Krishna has discontinued vancomycin and Zosyn and is treating only for C. difficile colitis with oral vancomycin and Questran. Patient continues to have loose watery stool about every hour. Urine culture is been finalized with no growth and blood cultures no growth after 48 hours. White count is at 20.7, hemoglobin 8.7, platelet count 15, potassium 3.2, BUN 5 and creatinine 0.38. Potassium will be replaced. Patient is planning for return home when ready for discharge. Review Of Systems: Constitutional: No fever, no chills, no night sweats. No weight change. + weakness, fatigue or lethargy. No daytime sleepiness. EENT: No headache. No blurred vision or double vision, no loss of vision. No loss of Hearing, no ringing in the ears, no dizziness. No nasal drainage or congestion. No epistaxis. No sore throat. Lungs: No shortness of breath, cough, no sputum production. No wheezing. Cardiovascular: No chest pain, no lower extremity edema. No palpitations. No paroxysmal nocturnal dyspnea. No orthopnea. No lightheadedness or dizziness. No syncopal episodes. Abdominal: No abdominal pain. No nausea, vomiting. + diarrhea. No constipation. No bloody or tarry stools. + loss of appetite. Genitourinary: No dysuria, increased frequency, urgency. No urinary retention. Musculoskeletal: No myalgias. No muscle weakness, no gait dysfunction, no frequent falls. No back pain. No neck pain. Integumentary: + wounds, no lesions. No rash or pruritus. No unusual bruising. No change in hair or nails. Neurologic: No aphasia. No facial droop. No change in mentation. No head injury. No headache. No paralysis. No paresthesia. Psychiatric: No depression. No anxiety. No mood swings. Endocrine: No abnormal blood sugars. No weight change. No excessive sweating or thirst. No cold intolerance. No weight change. Objective - Vital Signs Vital signs: Vital Signs Temp 98.4 F 07/17/18 05:55 Pulse 81 07/17/18 05:55 Resp 18 07/17/18 05:55 BP 117/83 07/17/18 05:55 Pulse Ox 97 07/17/18 05:55 Intake & Output 07/16/18 07/17/18 07/17/18 18:59 06:59 18:59 Intake Total 425 Balance 425 Weight 49.442 kg 49.442 kg Intake: Oral 425 Other: Voiding Method Bedside Commode Bedside Commode # Voids 4 3 # Bowel Movements 3 - Exam General appearance: average body habitus, cooperative, no acute distress. Patient is in bed and appears to be in no acute distress. - EENT Eyes: anicteric sclerae, EOMI, PERRLA ENT: hearing grossly normal, NA/AT, normal oropharynx - Neck Neck: normal ROM Thyroid: bilateral: normal size - Respiratory Respiratory: bilateral: CTA, negative: diminished, dullness, rales, rhonchi, wheezing, prolonged expiration - Cardiovascular Rhythm: regular Heart sounds: normal: S1, S2 Abnormal Heart Sounds: no systolic murmur, no diastolic murmur, no rub, no S3 Gallop, no S4 Gallop, no click, no other - Gastrointestinal General gastrointestinal: no absent bowel sounds, no decreased bowel sounds, no distended, no hepatomegaly, no hyperactive bowel sounds, normal bowel sounds, no organomegaly, no rigid, no scaphoid, no soft, splenomegaly, no tenderness, no umbilical hernia, no ventral hernia - Integumentary Integumentary: decreased turgor, normal - Neurologic Neurologic: CNII-XII intact - Musculoskeletal Musculoskeletal: gait normal, generalized weakness - Psychiatric Psychiatric: A&O x's 3, appropriate affect, intact judgment & insight - Labs CBC & Chem 7: 07/17/18 08:11 07/17/18 08:11 Labs: Abnormal Lab Results - Last 24 Hours (Table) 07/16/18 Range/Units 08:37 WBC 18.8 H (3.8-10.6) k/uL RBC 2.91 L (3.80-5.40) m/uL Hgb 8.5 L (11.4-16.0) gm/dL Hct 25.7 L (34.0-46.0) % RDW 17.6 H (11.5-15.5) % Plt Count 11 L* (150-450) k/uL Microbiology - Last 24 Hours (Table) 07/15/18 09:45 Urine Culture - Final Urine,Voided 07/15/18 09:34 Blood Culture - Preliminary Blood No Growth after 24 hours Assessment and Plan Plan: 1. Acute C. difficile colitis with sepsis. All IV antibiotics have been stopped by Dr. Krishna. Continue oral vancomycin and Questran and IV hydration. Continue isolation. 2. Right chest wall mass status post removal of port a cath and tissue biopsy done at [facility]. Consult with Dr. Lundberg is appreciated. Abscess ruled out by Dr. Lundberg. No plan for I&D. Sutures to be removed if okay with Dr. Lundberg. Consult with Dr. Krishna appreciated. IV antibiotics discontinued. 3. Bicytopenia with recent series of chemotherapy last one was 3 weeks ago on her second series, awaiting stem cell transplant. Consult with Dr. Aguilar appreciated. Bicytopenia due to anti-neoplastic chemotherapy and underlying residual AML/mild fibrosis. Transfuse for hemoglobin less than 7 and platelets less than 10, irradiated products only. Patient has been transfused with 1 unit of packed RBCs. 4. AML follows at [facility] Dr. Summers, oncologist. 5. 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 Consult with Dr. Correa appreciated. No further workup at this time. 6. Prior history of meningioma with 2 brain surgeries craniotomy's in the past 7. Restless leg syndrome not on medications prior to admission 8. GI prophylaxis, IV Pepcid 9. DVT prophylaxis, SCDs and ANI hose to be provided Prognosis guarded Discharge plan: Home without home care. Impression and plan of care have been directed as dictated by the signing physician. Gayle Rodriguez nurse practitioner acting as scribe for signing physician.
--- NOTE | 2018-07-18 01:46 | PN ---
PROGRESS NOTE DATE OF SERVICE: 07/17/2018. REASON FOR FOLLOWUP: C. dif colitis. INTERVAL HISTORY: The patient is currently afebrile. She is breathing comfortably. Denies significant chest pain. No cough. No abdominal pain. Diarrhea frequency slightly decreased. No nausea, vomiting. PHYSICAL EXAMINATION: Blood pressure is 118/67 with a pulse of 94, temperature 99.3. He is 97% on room air. General description is an elderly female, lying in bed in no distress. Respiratory system: Unlabored breathing. Clear to auscultation anteriorly. Heart S1, S2. Regular rate and rhythm. Abdomen soft, no tenderness. EXTREMITIES: No edema of feet. LABS: Hemoglobin 8.7, white count 20.7 with a BUN of 5, creatinine 0.38. DIAGNOSTIC IMPRESSION AND PLAN: 1. Patient admitted to the hospital with a fever with significant diarrhea and diagnosed with acute C difficile colitis. The patient at this time will be treated with oral vancomycin and Questran while watching clinical course closely. 2. The patient who did have abnormality in the right chest wall more of a seroma. Clinically doubt an abscess that will be monitored closely. No need for any systemic antibiotic therapy for the same. Continue supportive care. MMODL / IJN: [id number] /
[2018-07-18] MEDS: VANCOMYCIN ORAL SOLUTION 250 MG/5 ML BOTTLE PO SCH ×4 (05:30→22:52)
[2018-07-18] MEDS: CHERRY FLAVOR 60 ML BOTTLE PO SCH ×4 (05:30→22:53)
[2018-07-18] MEDS: CHOLESTYRAMINE (WITH SUGAR) 4 GM PACKET PO SCH ×2 (08:17→17:03)
[2018-07-18] MEDS: FAMOTIDINE 20 MG TAB PO SCH ×2 (08:17→20:52)
[2018-07-18] MEDS ORDERED: IOPAMIDOL-300 CONTRAST 30 ML VIAL (ORAL USE) PO PRN (09:34)
--- NOTE | 2018-07-18 11:36 | CT ---
EXAMINATION TYPE: CT abdomen wo/w con DATE OF EXAM: 07/18/2018 HISTORY: Splenomegaly CT DLP: 511.9mGycm Automated Exposure Control for Dose Reduction was Utilized. CONTRAST: CT scan of the abdomen is performed with oral and without and with IV Contrast, patient injected with 100 mL of Isovue 300. COMPARISON: None FINDINGS: LUNG BASES: Coronary artery calcification is present which is noted marker for coronary artery diseas e. LIVER/GB: Hepatomegaly is identified. There are calcified small gallstones in contracted gallbladder. PANCREAS: No significant abnormality is seen. SPLEEN: Massive splenomegaly is confirmed measuring almost 23 cm long axis coronal image 24. There is patent but enlarged and tortuous draining splenic vein. ADRENALS: No significant abnormality is seen. KIDNEYS: No renal calculi on noncontrast images. There is 4.3 cm exophytic simple appearing cyst lowe r pole level left kidney. BOWEL: Oral contrast does not reach colonic level. No suspicious small or large bowel dilatation is p resent LYMPH NODES: No greater than 1cm abdominal lymph nodes are appreciated. OSSEOUS STRUCTURES: Moderate to severe disc space narrowing lumbosacral junction is present. OTHER: Medial to the spleen between left adrenal gland and kidney there is focal thin-walled fluid co llection of uncertain etiology measuring roughly 5.6 x 2.5 cm axial image 47 x 9.0 cm craniocaudal di mension coronal image 56 is fairly low dense. Exophytic elongated renal cyst is most likely etiology. Other etiologies however not excluded. IMPRESSION: There is massive splenomegaly occupying majority of left abdomen with significant local m ass effect. This is likely causing distortion of exophytic upper pole left renal cyst. In addition th ere is hepatomegaly identified occupying significant portion of right abdomen.
[2018-07-18 12:18] LABS: Anisocytosis Slight; HCT 21.8 % (34.0-46.0); HGB 7.6 gm/dL (11.4-16.0); Hypochromasia Slight; MCH 30.1 pg (25.0-35.0); Mean Platelet Volume 8.1; Poikilocytosis Moderate; RBC 2.54 m/uL (3.80-5.40); RDW 17.8 % (11.5-15.5)
[2018-07-18 12:21] LABS: Platelet Count 12 k/uL (150-450)
[2018-07-18 12:36] LABS: Anion Gap 6 mmol/L; Blood Urea Nitrogen 4 mg/dL (7-17); Calcium 8.7 mg/dL (8.4-10.2); Carbon Dioxide 25 mmol/L (22-30); Chloride 107 mmol/L (98-107); Glucose 94 mg/dL (74-99); Potassium 4.1 mmol/L (3.5-5.1); Sodium 138 mmol/L (137-145)
[2018-07-18 13:24] LABS: Band Neutrophils % 6 %; Basophils # (M) 0.37 k/uL (0-0.2); Blast Cells # (M) 1.11 k/uL (0); Lymphocytes # (M) 1.35 k/uL (1.0-4.8); Metamyelocytes # (M) 1.11 k/uL (0); Metamyelocytes % 9 %; Monocytes # (M) 0.98 k/uL (0-1.0); Myelocytes % 13 %; Neutrophils % (M) 42 %; Nucleated Red Blood Cells 11 /100 WBC (0-0); Promyelocytes # (M) 0.12 k/uL (0); Promyelocytes % 1 %; Total Cells Counted 200; WBC 12.3 k/uL (3.8-10.6)
[2018-07-18 13:25] LABS: Polychromasia Present
--- NOTE | 2018-07-18 17:15 | P.PN ---
Subjective Progress Note Date: 07/18/18 This is a pleasant 67-year-old lady patient of Dr. Stewart Hernandez, who was diagnosed to have aggressive myelofibrosis in 2017, confirmed by bone marrow biopsy at [facility], now follows by [facility] physician Dr. Summers and she has been receiving chemotherapy for acute myeloid leukemia, and was treated with induction chemotherapy admitted to the hospital for about 8 weeks, and was discharged 3 weeks ago. She received her last chemotherapy 3 weeks ago to a right chest wall port that was placed locally here by Dr. Lundberg . The port was functioning well at that time, he requires flushing treatments. patient now comes in with hypotension, patient's to drop and thereafter collapsed. Patient denies any syncope, patient's lightheaded, patient is increasingly weak, has no nausea however this had watery stools, chest wall is more swollen the use well, with some edema and some hematoma, patient has no abdominal pain, has some bright red bloody stools, for the past 3 days. In the emergency room, patient was admitted with a concern that there might be a chest wall abscess, she did have a temperature spiking up to 100.9, CAT scan shows fluid collection with a suspicion of abscess based on CT, hemoglobin was 6.8, CT of the brain did not show any intracranial bleed or abscess, but did show evidence of extradural mass lesion with mild mass effect on the brain parenchyma on the left. 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 07/17: Patient has been seen by Dr. Correa and he has cleared her for I&D of the chest wall abscess if necessary platelet transfusions could be given. Patient to be transfused for hemoglobin less than 7 and platelets less than 10 unless active bleeding and radiated blood products are to be used. Patient to follow-up with [facility] oncology. 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 Lundberg has determine that he does not think there is anything to drain in chest wall lesion and will not be doing an I&D. Sutures may be removed if okay with Dr. Lundberg. Culture to be obtained if there is any drainage. Dr. Krishna has discontinued vancomycin and Zosyn and is treating only for C. difficile colitis with oral vancomycin and Questran. Patient continues to have loose watery stool about every hour. Urine culture is been finalized with no growth and blood cultures no growth after 48 hours. White count is at 20.7, hemoglobin 8.7, platelet count 15, potassium 3.2, BUN 5 and creatinine 0.38. Potassium will be replaced. Patient is planning for return home when ready for discharge. 07/18: Patient continues to have episodes of diarrhea. Patient states that she' ll he has abdominal pain when she is having a bowel movement she had approximately 4 loose stools this morning. Patient has been up in her room ambulating, able to tolerate eating and drinking. Patient does state that her bowel movements are improving. Dr. Lundberg in to see the patient regarding I and D of a chest abscess. However Dr. Lundberg states that the area is a tumor which he has sent off pathology at [facility] previously when the port was removed. Review Of Systems: Constitutional: No fever, no chills, no night sweats. No weight change. + weakness, fatigue or lethargy. No daytime sleepiness. EENT: No headache. No blurred vision or double vision, no loss of vision. No loss of Hearing, no ringing in the ears, no dizziness. No nasal drainage or congestion. No epistaxis. No sore throat. Lungs: No shortness of breath, cough, no sputum production. No wheezing. Cardiovascular: No chest pain, no lower extremity edema. No palpitations. No paroxysmal nocturnal dyspnea. No orthopnea. No lightheadedness or dizziness. No syncopal episodes. Abdominal: No abdominal pain. No nausea, vomiting. + diarrhea. No constipation. No bloody or tarry stools. + loss of appetite. Genitourinary: No dysuria, increased frequency, urgency. No urinary retention. Musculoskeletal: No myalgias. No muscle weakness, no gait dysfunction, no frequent falls. No back pain. No neck pain. Integumentary: + wounds, no lesions. No rash or pruritus. No unusual bruising. No change in hair or nails. Neurologic: No aphasia. No facial droop. No change in mentation. No head injury. No headache. No paralysis. No paresthesia. Psychiatric: No depression. No anxiety. No mood swings. Endocrine: No abnormal blood sugars. No weight change. No excessive sweating or thirst. No cold intolerance. No weight change. Objective - Vital Signs Vital signs: Vital Signs Temp 99.3 F 07/18/18 15:00 Pulse 84 07/18/18 15:00 Resp 16 07/18/18 15:00 BP 90/51 07/18/18 15:00 Pulse Ox 98 07/18/18 15:00 Intake & Output 07/17/18 07/18/18 07/18/18 18:59 06:59 18:59 Intake Total 1047 Balance 1047 Weight 49.442 kg Intake: Oral 1047 Other: Voiding Method Bedside Commode Toilet Bedside Commode # Voids 3 3 # Bowel Movements 3 - Constitutional General appearance: Present: average body habitus, cooperative, no acute distress - EENT Eyes: Present: anicteric sclerae, EOMI, PERRLA ENT: Present: hearing grossly normal - Neck Neck: Present: normal ROM. Absent: lymphadenopathy - Respiratory Respiratory: bilateral: CTA, negative: diminished, dullness, rales, rhonchi, wheezing - Cardiovascular Rhythm: regular Heart sounds: normal: S1, S2 Abnormal Heart Sounds: Absent: systolic murmur, diastolic murmur, rub, S3 Gallop , S4 Gallop, click, other - Gastrointestinal General gastrointestinal: Present: distended, hyperactive bowel sounds, splenomegaly, tenderness Localized gastrointestinal: mass: LUQ, LLQ - Integumentary Integumentary: Present: decreased turgor - Neurologic Neurologic: Present: CNII-XII intact - Musculoskeletal Musculoskeletal: Present: gait normal, generalized weakness - Psychiatric Psychiatric: Present: A&O x's 3, appropriate affect, intact judgment & insight - Labs CBC & Chem 7: 07/18/18 11:48 07/18/18 11:48 Labs: Abnormal Lab Results - Last 24 Hours (Table) 07/18/18 07/18/18 Range/Units 11:48 11:48 WBC 12.3 H (3.8-10.6) k/uL RBC 2.54 L (3.80-5.40) m/uL Hgb 7.6 L (11.4-16.0) gm/dL Hct 21.8 L (34.0-46.0) % RDW 17.8 H (11.5-15.5) % Plt Count 12 L* (150-450) k/uL Blast Cells % 9 H* % Basophils # (Manual) 0.37 H (0-0.2) k/uL Metamyelocytes # (Man) 1.11 H (0) k/uL Myelocytes # (Manual) 1.60 H (0) k/uL Promyelocytes # (Man) 0.12 H (0) k/uL Blast Cells # (Man) 1.11 H (0) k/uL Nucleated RBCs 11 H (0-0) /100 WBC BUN 4 L (7-17) mg/dL Creatinine 0.38 L (0.52-1.04) mg/dL Microbiology - Last 24 Hours (Table) 07/15/18 09:34 Blood Culture - Preliminary Blood No Growth after 72 hours 07/17/18 14:00 Gram Stain - Preliminary Chest Wound Culture - Preliminary Gram Neg Bacilli 07/17/18 14:00 Anaerobic Culture - Preliminary Chest Assessment and Plan Plan: 1. Acute C. difficile colitis with sepsis. All IV antibiotics have been stopped by Dr. Krishna. Continue oral vancomycin and Questran and IV hydration. Continue isolation. May consider possible IV Flagyl if diarrhea continues. 2. Right chest wall mass status post removal of port a cath and tissue biopsy done at [facility]. Dr. Lundberg in to see patient in no I&D performed related to mass not an abscess. Sutures removed and drainage sent for culture. 3. Bicytopenia with recent series of chemotherapy last one was 3 weeks ago on her second series, awaiting stem cell transplant. Consult with Dr. Aguilar appreciated. Bicytopenia due to anti-neoplastic chemotherapy and underlying residual AML/mild fibrosis. Transfuse for hemoglobin less than 7 and platelets less than 10, irradiated products only. Patient has been transfused with 1 unit of packed RBCs. 4. AML follows at [facility] Dr. Summers, oncologist. 5. 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 Consult with Dr. Correa appreciated. Consult to neurology. 6. Prior history of meningioma with 2 brain surgeries craniotomy's in the past 7. Restless leg syndrome not on medications prior to admission 8. GI prophylaxis, IV Pepcid 9. DVT prophylaxis, SCDs and ANI hose to be provided Prognosis guarded Discharge plan: Home without home care. Impression and plan of care have been directed as dictated by the signing physician. Mary Kay Tuttle nurse practitioner acting as scribe for signing physician.
--- NOTE | 2018-07-18 19:43 | P.CNNES ---
History of Present Illness Consult date: 07/18/18 Requesting physician: Valentina Lr Reason for Consult: Headache Chief complaint: Headache History of Present Illness: Neurology is consulting on a 67-year-old female with headache. Patient has had the reported right unilateral frontal head pain for several months. She states that she has her oncology providers through [facility] and has informed them of her head pain in the past. She states that the occurrences happen very infrequently and may occur up to 3 times per day on the days that they occur. Occurrences may happen 1-3 times per week. Last occurrence was today. Duration of occurrence can be up to 90 minutes. Occurrences are relieved with [id number] Motrin or Tylenol. Patient states that she is due to follow up with her oncology providers in [place] in 3-4 days. Patient states that her complaints of head pain have not changed in frequency, intensity, duration or distribution or any other characteristics since onset or sense being made known to her other providers in [place]. 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 Patient was admitted through the emergency room for chest wall abscess and elevated temperature of 100.9. CT scan showed fluid collection within suspicious abscess. Abscess was identified on CT. CT of the brain did not show any intracranial bleed or abscess, but did show evidence of extradural mass lesion with mild mass-effect on the brain parenchyma on the left. Patient was admitted with infectious consultation, consult to Dr. 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 On contact, the patient is alert and oriented 3, resting in bed in no acute distress. Patient does not currently have any head pain. Review of Systems systems not noted in HPI are negative Past Medical History Past Medical History: Blood Disorder, Cancer, Neurologic Disorder Additional Past Medical History / Comment(s): Received pna vax - unsure when. 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 Past Anesthesia/Blood Transfusion Reactions: Motion Sickness Past Psychological History: No Psychological Hx Reported Smoking Status: Former smoker Past Alcohol Use History: Occasional Past Drug Use History: None Reported - Past Family History Mother Family Medical History: Cancer Additional Family Medical History / Comment(s): Bone cancer - smoker. Father Family Medical History: Myocardial Infarction ([place]) Additional Family Medical History / Comment(s): Cardiac arrest at age 60 Medications and Allergies Home Medications Medication Instructions Recorded Confirmed Type Cefadroxil [Duricef Susp] 500 mg PO BID 07/15/18 07/15/18 History Allergies Allergy/AdvReac Type Severity Reaction Status Date / Time No Known Allergies Allergy Verified 06/26/18 08:39 Physical Examination - Vital Signs Vital Signs: Vital Signs Temp Pulse Resp BP Pulse Ox 07/18/18 15:00 99.3 F 84 16 90/51 98 07/18/18 07:00 98.7 F 86 16 101/61 98 07/17/18 21:35 99.3 F 94 17 118/67 97 Intake and Output 07/18/18 07/18/18 07/18/18 06:59 14:59 22:59 Other: Voiding Method Toilet Bedside Commode # Voids 3 3 General appearance: Alert & oriented x3, no apparent distress. Head: Atraumatic, normocephalic, normal inspection Eyes: PERRLA, EOMI. Absent scleral icterus, conjunctival injection, nystagmus, periorbital swelling. Ear, nose and throat: Normal exam, mucous membranes moist Neck: Normal inspection, absent tenderness, lymphadenopathy. Respiratory: No increased work of breathing Cardiovascular: Regular rate, rhythm GI/abdominal: No guarding, no rigidity Extremities: moves all extremities Neurological: cranial nerves II through XII intact no lateralizing weaknessgeneralized weakness no seizure activity noted on physical exam no pronator drift and no nystagmus. Strength: able to move all 4 extremities generalized upper and lower extremity weakness Sensation: Left lower extremity: normal Right lower extremity: normal Left upper extremity: normal Right upper extremity:normal Psychological: Mood and Affect appropriate for setting Results - Laboratory Findings CBC and BMP: 07/18/18 11:48 07/18/18 11:48 Abnormal Lab Findings: Abnormal Labs 07/15/18 07/15/18 07/15/18 09:34 09:34 09:34 WBC RBC 2.27 L Hgb 6.8 L* Hct 19.4 L* RDW 18.2 H Plt Count 11 L* Blast Cells % 7 H* Neutrophils # (Manual) Lymphocytes # (Manual) Monocytes # (Manual) 1.50 H Basophils # (Manual) Metamyelocytes # (Man) 0.50 H Myelocytes # (Manual) 1.00 H Promyelocytes # (Man) Blast Cells # (Man) 0.70 H Nucleated RBCs 17 H Potassium Chloride BUN Creatinine 0.44 L Glucose Calcium 8.3 L Total Bilirubin 1.4 H Total Creatine Kinase <20 L Total Protein 5.7 L Albumin 3.3 L Urine Protein C. difficile (EIA) Intrp Crossmatch 07/15/18 07/15/18 07/15/18 09:34 09:45 17:40 WBC RBC 2.39 L Hgb 7.1 L Hct 20.8 L RDW 17.4 H Plt Count 11 L* Blast Cells % 21 H* Neutrophils # (Manual) Lymphocytes # (Manual) Monocytes # (Manual) Basophils # (Manual) Metamyelocytes # (Man) 0.53 H Myelocytes # (Manual) 1.20 H Promyelocytes # (Man) 0.23 H Blast Cells # (Man) 1.58 H Nucleated RBCs 18 H Potassium Chloride BUN Creatinine Glucose Calcium Total Bilirubin Total Creatine Kinase Total Protein Albumin Urine Protein Trace H C. difficile (EIA) Intrp Crossmatch See Detail 07/15/18 07/15/18 07/16/18 20:23 20:56 08:37 WBC 18.8 H RBC 2.69 L 2.91 L Hgb 8.0 L 8.5 L Hct 23.8 L 25.7 L RDW 17.3 H 17.6 H Plt Count 10 L* 11 L* Blast Cells % 18 H* Neutrophils # (Manual) Lymphocytes # (Manual) 0.60 L Monocytes # (Manual) Basophils # (Manual) Metamyelocytes # (Man) 0.60 H Myelocytes # (Manual) 1.53 H Promyelocytes # (Man) 0.17 H Blast Cells # (Man) 1.53 H Nucleated RBCs 15 H Potassium Chloride BUN Creatinine Glucose Calcium Total Bilirubin Total Creatine Kinase Total Protein Albumin Urine Protein C. difficile (EIA) Intrp Positive A Crossmatch 07/17/18 07/17/18 07/18/18 08:11 08:11 11:48 WBC 20.7 H 12.3 H RBC 2.95 L 2.54 L Hgb 8.7 L 7.6 L Hct 26.4 L 21.8 L RDW 18.2 H 17.8 H Plt Count 15 L* 12 L* Blast Cells % 4 H* 9 H* Neutrophils # (Manual) 11.50 H Lymphocytes # (Manual) 6.00 H Monocytes # (Manual) 1.04 H Basophils # (Manual) 0.37 H Metamyelocytes # (Man) 0.41 H 1.11 H Myelocytes # (Manual) 1.45 H 1.60 H Promyelocytes # (Man) 0.12 H Blast Cells # (Man) 0.83 H 1.11 H Nucleated RBCs 7 H 11 H Potassium 3.2 L Chloride 110 H BUN 5 L Creatinine 0.38 L Glucose 102 H Calcium 8.1 L Total Bilirubin Total Creatine Kinase Total Protein Albumin Urine Protein C. difficile (EIA) Intrp Crossmatch 07/18/18 11:48 WBC RBC Hgb Hct RDW Plt Count Blast Cells % Neutrophils # (Manual) Lymphocytes # (Manual) Monocytes # (Manual) Basophils # (Manual) Metamyelocytes # (Man) Myelocytes # (Manual) Promyelocytes # (Man) Blast Cells # (Man) Nucleated RBCs Potassium Chloride BUN 4 L Creatinine 0.38 L Glucose Calcium Total Bilirubin Total Creatine Kinase Total Protein Albumin Urine Protein C. difficile (EIA) Intrp Crossmatch Assessment and Plan (1) Abnormal CT of brain Current Visit: Yes Status: Acute Code(s): R90.89 - OTH ABNORMAL FINDINGS ON DIAGNOSTIC IMAGING OF CNSL SNOMED Code(s): 879944472 (2) Head pain Current Visit: Yes Status: Acute Code(s): R51 - HEADACHE SNOMED Code(s): 29574653 (3) Cancer Current Visit: Yes Status: Acute Code(s): C80.1 - MALIGNANT (PRIMARY) NEOPLASM, UNSPECIFIED SNOMED Code(s): 089760067 Plan: Neurology is being consulted for head pain. Patient has prior history of known head pain that is of unchanged characteristics and symptoms for greater than 2 months and is known by her [facility] providers and is relieved with [id number] Motrin and/or Tylenol. Patient is due to follow up in [place] in the next 3-4 days with her oncology providers. Given the known history of this condition and complaint, ability for resolution, no further neurological workup will be ordered at this time. Patient may continue to use medication indicated for abortive purposes when necessary. If there is any further concern related to the patient's abnormal CT, we would defer to patient' s oncology providers at [facility] and recommend either contacting those providers or considering transfer to their facility for further evaluation and treatment. Neurology will clear the patient for discharge or transfer at this time from a neurological standpoint. I have discussed the plan of care with the physician prior to implementation and he agrees with the plan as implemented.
[2018-07-19] MEDS: VANCOMYCIN ORAL SOLUTION 250 MG/5 ML BOTTLE PO SCH ×4 (06:03→23:41)
[2018-07-19] MEDS: CHERRY FLAVOR 60 ML BOTTLE PO SCH ×4 (06:03→23:41)
--- NOTE | 2018-07-19 07:09 | PN ---
PROGRESS NOTE DATE OF SERVICE: 07/18/2018. REASON FOR FOLLOWUP: C. difficile colitis. INTERVAL HISTORY: The patient is afebrile. Her diarrhea has slightly decreased. Did have soft bowel movement today and abdominal pain has improved. The patient denies any pain to the right upper chest wall area or drainage from it. Denies having any shortness of breath or cough. PHYSICAL EXAMINATION: Blood pressure 106/66 with a pulse of 98, temperature is 98.9, she is 98% on room air. General description is an elderly female lying in bed in no distress. Respiratory system: Unlabored breathing. Clear to auscultation anteriorly. Heart S1, S2. Regular rate and rhythm. Abdomen soft. No tenderness. Extremities: No edema of the feet. LABS: Hemoglobin is 7.6, white count of 12.3, BUN of 4, creatinine 0.38. Did have superficial culture obtained from the chest wall showing gram-negative bacilli. DIAGNOSTIC IMPRESSION AND PLAN: 1. Patient with C difficile colitis for which the patient will continue oral vancomycin and Questran for symptomatic relief. 2. Positive culture from the chest wall, right side with currently no open wound, superficial cultures and clinically doubt any abscess. No need for any systemic antibiotic therapy for the same. 3. Continue supportive care. MMODL / IJN: [id number] /
[2018-07-19] MEDS: CHOLESTYRAMINE (WITH SUGAR) 4 GM PACKET PO SCH ×2 (09:02→17:20)
[2018-07-19] MEDS: FAMOTIDINE 20 MG TAB PO SCH ×2 (09:02→21:06)
[2018-07-19 09:05] LABS: Anisocytosis Slight; HCT 27.6 % (34.0-46.0); Hypochromasia Moderate; MCH 28.7 pg (25.0-35.0); MCHC 32.6 g/dL (31.0-37.0); MCV 87.9 fL (80.0-100.0); Mean Platelet Volume 8.3; Poikilocytosis Moderate; RBC 3.14 m/uL (3.80-5.40)
[2018-07-19 09:15] LABS: Platelet Count 13 k/uL (150-450)
[2018-07-19 09:18] LABS: Anion Gap 7 mmol/L; Blood Urea Nitrogen 5 mg/dL (7-17); Carbon Dioxide 29 mmol/L (22-30); Chloride 103 mmol/L (98-107); Glucose 92 mg/dL (74-99); Sodium 139 mmol/L (137-145)
[2018-07-19] MEDS: metroNIDAZOLE-NS PMX 500 MG in SALINE 1 100ML.BAG IVPB SCH ×3 (10:30→23:40)
[2018-07-19 13:02] LABS: Band Neutrophils % 8 %; Basophils # (M) 0.41 k/uL (0-0.2); Blast Cells # (M) 3.31 k/uL (0); Metamyelocytes # (M) 1.66 k/uL (0); Metamyelocytes % 8 %; Monocytes # (M) 1.24 k/uL (0-1.0); Myelocytes # (M) 2.48 k/uL (0); Myelocytes % 12 %; Neutrophils % (M) 35 %; Nucleated Red Blood Cells 17 /100 WBC (0-0); Promyelocytes # (M) 0.21 k/uL (0); Promyelocytes % 1 %; Total Cells Counted 200; WBC 20.7 k/uL (3.8-10.6)
[2018-07-19 13:03] LABS: Polychromasia Present
--- NOTE | 2018-07-19 16:22 | P.PN ---
Subjective Progress Note Date: 07/19/18 This is a pleasant 67-year-old lady patient of Dr. Stewart Hernandez, who was diagnosed to have aggressive myelofibrosis in 2017, confirmed by bone marrow biopsy at [facility], now follows by [facility] physician Dr. Summers and she has been receiving chemotherapy for acute myeloid leukemia, and was treated with induction chemotherapy admitted to the hospital for about 8 weeks, and was discharged 3 weeks ago. She received her last chemotherapy 3 weeks ago to a right chest wall port that was placed locally here by Dr. Lundberg . The port was functioning well at that time, he requires flushing treatments. patient now comes in with hypotension, patient's to drop and thereafter collapsed. Patient denies any syncope, patient's lightheaded, patient is increasingly weak, has no nausea however this had watery stools, chest wall is more swollen the use well, with some edema and some hematoma, patient has no abdominal pain, has some bright red bloody stools, for the past 3 days. In the emergency room, patient was admitted with a concern that there might be a chest wall abscess, she did have a temperature spiking up to 100.9, CAT scan shows fluid collection with a suspicion of abscess based on CT, hemoglobin was 6.8, CT of the brain did not show any intracranial bleed or abscess, but did show evidence of extradural mass lesion with mild mass effect on the brain parenchyma on the left. 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 07/17: Patient has been seen by Dr. Correa and he has cleared her for I&D of the chest wall abscess if necessary platelet transfusions could be given. Patient to be transfused for hemoglobin less than 7 and platelets less than 10 unless active bleeding and radiated blood products are to be used. Patient to follow-up with [facility] oncology. 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 Lundberg has determine that he does not think there is anything to drain in chest wall lesion and will not be doing an I&D. Sutures may be removed if okay with Dr. Lundberg. Culture to be obtained if there is any drainage. Dr. Krishna has discontinued vancomycin and Zosyn and is treating only for C. difficile colitis with oral vancomycin and Questran. Patient continues to have loose watery stool about every hour. Urine culture is been finalized with no growth and blood cultures no growth after 48 hours. White count is at 20.7, hemoglobin 8.7, platelet count 15, potassium 3.2, BUN 5 and creatinine 0.38. Potassium will be replaced. Patient is planning for return home when ready for discharge. 07/18: Patient continues to have episodes of diarrhea. Patient states that she' ll he has abdominal pain when she is having a bowel movement she had approximately 4 loose stools this morning. Patient has been up in her room ambulating, able to tolerate eating and drinking. Patient does state that her bowel movements are improving. Dr. Lundberg in to see the patient regarding I and D of a chest abscess. However Dr. Lundberg states that the area is a tumor which he has sent off pathology at [facility] previously when the port was removed. 07/19: Patient is a in her room. She states that she is feeling better. Patient continues to still have diarrhea however has been improving. CT results did show an enlarged spleen. WBC 20.6 which is elevated from previous day. Discussed with I&D the addition of Flagyl IV and increasing vanco due to the leukocytosis Hemoglobin 9, platelets 13 which are stable. Patient is scheduled to go to [facility] tomorrow for workup on stem cell transplant. Discussed with patient and to call and reschedule the appointment until the infection has been resolved. Review Of Systems: Constitutional: No fever, no chills, no night sweats. No weight change. + weakness, +fatigue no lethargy. No daytime sleepiness. EENT: No headache. No blurred vision or double vision, no loss of vision. No loss of Hearing, no ringing in the ears, no dizziness. No nasal drainage or congestion. No epistaxis. No sore throat. Lungs: No shortness of breath, cough, no sputum production. No wheezing. Cardiovascular: No chest pain, no lower extremity edema. No palpitations. No paroxysmal nocturnal dyspnea. No orthopnea. No lightheadedness or dizziness. No syncopal episodes. Abdominal: No abdominal pain. No nausea, vomiting. + diarrhea. No constipation. No bloody or tarry stools. + loss of appetite. Genitourinary: No dysuria, increased frequency, urgency. No urinary retention. Musculoskeletal: No myalgias. No muscle weakness, no gait dysfunction, no frequent falls. No back pain. No neck pain. Integumentary: + wounds, no lesions. No rash or pruritus. No unusual bruising. No change in hair or nails. Neurologic: No aphasia. No facial droop. No change in mentation. No head injury. No headache. No paralysis. No paresthesia. Psychiatric: No depression. No anxiety. No mood swings. Endocrine: No abnormal blood sugars. No weight change. No excessive sweating or thirst. No cold intolerance. No weight change. Objective - Vital Signs Vital signs: Vital Signs Temp 98.3 F 07/19/18 14:57 Pulse 98 07/19/18 14:57 Resp 16 07/19/18 14:57 BP 99/59 07/19/18 14:57 Pulse Ox 99 07/19/18 14:57 Intake & Output 07/18/18 07/19/18 07/19/18 18:59 06:59 18:59 Intake Total 100 Balance 100 Intake: IV 100 metroNIDAZOLE-NS PMX 500 100 mg In Saline 1 100ml.bag @ 100 mls/hr IVPB Q8HR [facility] Rx#:[id number] Other: Voiding Method Toilet Bedside Commode # Voids 3 2 - Constitutional General appearance: Present: average body habitus, cooperative, no acute distress - EENT Eyes: Present: anicteric sclerae, EOMI, PERRLA ENT: Present: hearing grossly normal, NA/AT, normal oropharynx - Neck Neck: Present: normal ROM. Absent: lymphadenopathy, rigidity - Respiratory Respiratory: bilateral: CTA, negative: diminished, dullness, rales, rhonchi, wheezing - Cardiovascular Rhythm: regular Heart sounds: normal: S1, S2 Abnormal Heart Sounds: Absent: systolic murmur, diastolic murmur, rub, S3 Gallop , S4 Gallop, click, other - Gastrointestinal General gastrointestinal: Present: distended, hyperactive bowel sounds, splenomegaly, tenderness Localized gastrointestinal: mass: LUQ, LLQ - Integumentary Integumentary: Present: decreased turgor - Neurologic Neurologic: Present: CNII-XII intact - Musculoskeletal Musculoskeletal: Present: gait normal, generalized weakness, strength equal bilaterally - Psychiatric Psychiatric: Present: A&O x's 3, appropriate affect, intact judgment & insight - Labs CBC & Chem 7: 07/19/18 08:35 07/19/18 08:35 Labs: Abnormal Lab Results - Last 24 Hours (Table) 07/19/18 07/19/18 Range/Units 08:35 08:35 WBC 20.7 H (3.8-10.6) k/uL RBC 3.14 L (3.80-5.40) m/uL Hgb 9.0 L (11.4-16.0) gm/dL Hct 27.6 L (34.0-46.0) % RDW 18.0 H (11.5-15.5) % Plt Count 13 L* (150-450) k/uL Blast Cells % 16 H* % Neutrophils # (Manual) 8.90 H (1.3-7.7) k/uL Monocytes # (Manual) 1.24 H (0-1.0) k/uL Basophils # (Manual) 0.41 H (0-0.2) k/uL Metamyelocytes # (Man) 1.66 H (0) k/uL Myelocytes # (Manual) 2.48 H (0) k/uL Promyelocytes # (Man) 0.21 H (0) k/uL Blast Cells # (Man) 3.31 H (0) k/uL Nucleated RBCs 17 H (0-0) /100 WBC BUN 5 L (7-17) mg/dL Creatinine 0.40 L (0.52-1.04) mg/dL Microbiology - Last 24 Hours (Table) 07/17/18 14:00 Anaerobic Culture - Preliminary Chest 07/17/18 14:00 Gram Stain - Final Chest Wound Culture - Final Klebsiella oxytoca 07/15/18 09:34 Blood Culture - Preliminary Blood No Growth after 96 hours Assessment and Plan Plan: 1. Acute C. difficile colitis with sepsis. All IV antibiotics have been stopped by Dr. Krishna. Continue oral vancomycin and Questran and IV hydration. Continue isolation. IV Flagyl 500 mg IV every 8 hours, vancomycin 500 mg by mouth 26 hours. 2. Right chest wall mass status post removal of port a cath and tissue biopsy done at [facility]. Dr. Toño in to see patient in no I&D performed related to mass not an abscess. Sutures removed and drainage sent for culture. 3. Bicytopenia with recent series of chemotherapy last one was 3 weeks ago on her second series, awaiting stem cell transplant. Consult with Dr. Aguilar appreciated. Bicytopenia due to anti-neoplastic chemotherapy and underlying residual AML/mild fibrosis. Transfuse for hemoglobin less than 7 and platelets less than 10, irradiated products only. Patient has been transfused with 1 unit of packed RBCs. 4. AML follows at [facility] Dr. Summers, oncologist. Discussed with patient and to reschedule the workup for stem cell transplant. 5. 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 Consult with Dr. Correa appreciated. Consult to neurology. 6. Prior history of meningioma with 2 brain surgeries craniotomy's in the past 7. Restless leg syndrome not on medications prior to admission 8. GI prophylaxis, IV Pepcid 9. DVT prophylaxis, SCDs and ANI hose to be provided Prognosis guarded Discharge plan: Home without home care. Impression and plan of care have been directed as dictated by the signing physician. Mary Kay Tuttle nurse practitioner acting as scribe for signing physician.
--- NOTE | 2018-07-20 00:06 | PN ---
PROGRESS NOTE DATE OF SERVICE: 07/19/2018. REASON FOR FOLLOWUP: C difficile colitis. INTERVAL HISTORY: The patient is afebrile. He is breathing comfortably. The patient did mention that the diarrhea has improved. Denies having any pain to the right upper chest wall area. No nausea, no vomiting. EXAMINATION: Blood pressure 121/56, pulse of 90, temperature 98.1, she is 99% on room air. GENERAL DESCRIPTION: An elderly female lying in bed in no distress. RESPIRATORY SYSTEM: Unlabored breathing. Clear to auscultation anteriorly. HEART: S1, S2. Regular rate and rhythm. ABDOMEN: Soft, no tenderness. EXTREMITIES: No edema of the feet. SKIN: Right upper chest wall area with some induration but no redness or any drainage. LABS: Hemoglobin is 9, white count of 20.7. BUN of 5, creatinine 0.40. DIAGNOSTIC IMPRESSION AND PLAN: 1. Patient with acute clostridium difficile colitis for the patient. The patient will continue p.o. vancomycin, dose has been adjusted up, however, the patient seemed to have shown clinical improvement. She noticed to have some elevation of the white count, which could have been factitious as her hemoglobin has gone up too. She will be monitored closely. 2. Patient with right chest wall area ____. Clinically doubt infection. Monitor closely. Continue supportive care. MMODL / IJN: [id number] /
[2018-07-20] MEDS: VANCOMYCIN ORAL SOLUTION 250 MG/5 ML BOTTLE PO SCH ×2 (06:25→12:40)
[2018-07-20] MEDS: CHERRY FLAVOR 60 ML BOTTLE PO SCH ×2 (06:25→12:41)
[2018-07-20 07:35] VITALS: BP 105/68; PULSE 89; RESP 16; TEMP 98
[2018-07-20] MEDS: metroNIDAZOLE-NS PMX 500 MG in SALINE 1 100ML.BAG IVPB SCH (07:55)
[2018-07-20] MEDS: FAMOTIDINE 20 MG TAB PO SCH (07:55)
[2018-07-20] MEDS: CHOLESTYRAMINE (WITH SUGAR) 4 GM PACKET PO SCH (10:03)
--- NOTE | 2018-07-20 16:31 | PN ---
PROGRESS NOTE DATE OF SERVICE: 07/20/2018. REASON FOR FOLLOWUP: C difficile colitis. INTERVAL HISTORY: The patient is currently afebrile. She is breathing comfortably. Denies having any chest pain. No shortness of breath or cough. The patient diarrhea has resolved. Has had no vomiting in the last 24 hours. Denies any pain to the right upper chest wall area. EXAMINATION: Blood pressure is 105/68 with a pulse of 89, temperature 98. She is 98% on room air. General description is an elderly female, lying in bed in no distress. Respiratory system: Unlabored breathing. Clear to auscultation anteriorly. Heart S1, S2. Regular rate and rhythm. Abdomen soft. No tenderness. LABORATORY DATA: No new labs have been obtained today. DIAGNOSTIC IMPRESSION AND PLAN: 1. Patient with C difficile colitis clinically responded to vancomycin with no bowel movement for more than 24 hours. We will discontinue Questran. She will finish therapy with oral vancomycin 250 q.6 hours for another 10 days. 2. Patient with positive culture from the chest wall, superficial culture. No evidence of any abscess. We will recommend antibiotic for the same. 3. Continue supportive care. MMODL / IJN: [id number] /
--- NOTE | 2018-07-21 09:02 | P.DS ---
Providers Date of admission: 07/15/18 14:36 Expected date of discharge: 07/20/18 Attending physician: Lakshmi Hobson Consults: 07/15/18 14:33 Consult Physician Urgent Consulting Provider: Wilder Lundberg Consult Reason/Comments: Chest wall abscess Do you want consulting provider notified?: Yes Consult Physician Urgent Consulting Provider: Eleuterio Correa Consult Reason/Comments: Leukemia Do you want consulting provider notified?: Yes 07/15/18 20:19 Consult Physician Routine Consulting Provider: Valentín Krishna Consult Reason/Comments: Fever of unknown origin Do you want consulting provider notified?: Yes 07/18/18 09:35 Consult Physician Routine Consulting Provider: Brenda Wei Consult Reason/Comments: abnormal ct, headaches, leukemia Do you want consulting provider notified?: Yes Primary care physician: [facility] Course: This is a pleasant 67-year-old lady patient of Dr. Stewart Hernandez, who was diagnosed to have aggressive myelofibrosis in 2017, confirmed by bone marrow biopsy at [facility], now follows by [facility] physician Dr. Summers and she has been receiving chemotherapy for acute myeloid leukemia, and was treated with induction chemotherapy admitted to the hospital for about 8 weeks, and was discharged 3 weeks ago. She received her last chemotherapy 3 weeks ago to a right chest wall port that was placed locally here by Dr. Lundberg . The port was functioning well at that time, he requires flushing treatments. patient now comes in with hypotension, patient's to drop and thereafter collapsed. Patient denies any syncope, patient's lightheaded, patient is increasingly weak, has no nausea however this had watery stools, chest wall is more swollen the use well, with some edema and some hematoma, patient has no abdominal pain, has some bright red bloody stools, for the past 3 days. In the emergency room, patient was admitted with a concern that there might be a chest wall abscess, she did have a temperature spiking up to 100.9, CAT scan shows fluid collection with a suspicion of abscess based on CT, hemoglobin was 6.8, CT of the brain did not show any intracranial bleed or abscess, but did show evidence of extradural mass lesion with mild mass effect on the brain parenchyma on the left. 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 07/17: Patient has been seen by Dr. Correa and he has cleared her for I&D of the chest wall abscess if necessary platelet transfusions could be given. Patient to be transfused for hemoglobin less than 7 and platelets less than 10 unless active bleeding and radiated blood products are to be used. Patient to follow-up with [facility] oncology. 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 Lundberg has determine that he does not think there is anything to drain in chest wall lesion and will not be doing an I&D. Sutures may be removed if okay with Dr. Lundberg. Culture to be obtained if there is any drainage. Dr. Krishna has discontinued vancomycin and Zosyn and is treating only for C. difficile colitis with oral vancomycin and Questran. Patient continues to have loose watery stool about every hour. Urine culture is been finalized with no growth and blood cultures no growth after 48 hours. White count is at 20.7, hemoglobin 8.7, platelet count 15, potassium 3.2, BUN 5 and creatinine 0.38. Potassium will be replaced. Patient is planning for return home when ready for discharge. 07/18: Patient continues to have episodes of diarrhea. Patient states that she' ll he has abdominal pain when she is having a bowel movement she had approximately 4 loose stools this morning. Patient has been up in her room ambulating, able to tolerate eating and drinking. Patient does state that her bowel movements are improving. Dr. Lundbreg in to see the patient regarding I and D of a chest abscess. However Dr. Lundberg states that the area is a tumor which he has sent off pathology at [facility] previously when the port was removed. 07/19: Patient is a in her room. She states that she is feeling better. Patient continues to still have diarrhea however has been improving. CT results did show an enlarged spleen. WBC 20.6 which is elevated from previous day. Discussed with I&D the addition of Flagyl IV and increasing vanco due to the leukocytosis Hemoglobin 9, platelets 13 which are stable. Patient is scheduled to go to [facility] tomorrow for workup on stem cell transplant. Discussed with patient and to call and reschedule the appointment until the infection has been resolved. 07/20: Patient and her are anxious to be discharged. He states that he is going to be taking her down to [facility] for further treatment. Diarrhea is improved from yesterday. She continues to have generalized weakness and physical therapy is recommended home care. They have denied home care. Vital signs have been stable, patient has been afebrile. Patient will be discharged today in stable condition. Discharge diagnoses: 1. Acute C. difficile colitis with sepsis. 2. Right chest wall mass status post removal of port a cath and tissue biopsy done at [facility]. Dr. Lundberg in to see patient in no I&D performed related to mass not an abscess. 3. Bicytopenia with recent series of chemotherapy last one was 3 weeks ago on her second series, awaiting stem cell transplant. Patient has been transfused with 1 unit of packed RBCs. 4. AML follows at [facility] Dr. Summers, oncologist. 5. 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 6. Prior history of meningioma with 2 brain surgeries craniotomy's in the past 7. Restless leg syndrome Discharge plan: Home Impression and plan of care have been directed as dictated by the signing physician. Mary Kay Tuttle nurse practitioner acting as scribe for signing physician. Patient Condition at Discharge: Good Plan - Discharge Summary Discharge Rx Participant: No New Discharge Prescriptions: New Vancomycin Oral Solution 500 mg PO Q6HR #360 ml Discontinued Cefadroxil [Duricef Susp] 500 mg PO BID Discharge Medication List Vancomycin Oral Solution 500 mg PO Q6HR #360 ml 07/20/18 [Rx] Follow up Appointment(s)/Referral(s): Jonathan Hernandez MD [Primary Care Provider] - 07/23/18 1:00 pm Patient Instructions/Handouts: C Diff (Clostridium Difficile) Infection (DC) Discharge Disposition: HOME SELF-CARE
== END 2018-07-20 14:08 | disposition home or self-care (01) | DRG 872 ==
LOC: EC 09:15 → 3NMEDONC 14:36 → 4MS4W 18:23
PROVIDERS: ADMIT Family Medicine; ATTEND Family Medicine
DX: A41.89 Other specified sepsis (principal); A04.72 Enterocolitis due to Clostridium difficile, not specified as recurrent; C92.00 Acute myeloblastic leukemia, not having achieved remission; T45.1X5A Adverse effect of antineoplastic and immunosuppressive drugs, initial encounter; D69.59 Other secondary thrombocytopenia; G25.81 Restless legs syndrome; G93.9 Disorder of brain, unspecified; I73.00 Raynaud's syndrome without gangrene; I95.9 Hypotension, unspecified; R22.2 Localized swelling, mass and lump, trunk; R51 Headache; G35 Multiple sclerosis; R32 Unspecified urinary incontinence; R29.6 Repeated falls; R16.1 Splenomegaly, not elsewhere classified; Z90.710 Acquired absence of both cervix and uterus; Z87.891 Personal history of nicotine dependence; Z86.19 Personal history of other infectious and parasitic diseases; Z86.011 Personal history of benign neoplasm of the brain; Z80.8 Family history of malignant neoplasm of other organs or systems; Z82.41 Family history of sudden cardiac death; Z82.49 Family history of ischemic heart disease and other diseases of the circulatory system
CPT/HCPCS: 36415; 70450; 71046; 71260; 74170; 80048; 80053; 81003; 82550; 82553; 83605; 84443; 84484; 85025; 85027; 85610; 85730; 86850; 86900; 86901; 86920; 87040; 87070; 87075; 87077; 87086; 87186; 87205; 87324; 93005; 96361; 96365; 96367; 96375; 99291